=== PATIENT | male | born 1940 | race Caucasian/White ===

== ENCOUNTER 2017-07-17 23:08 | Inpatient (IN) | payer MEDICARE, OTHER ==
[~2017-07-17] VITALS: Ht 180.3 cm; Wt 81.3 kg
[~2017-07-17 23:08] MED LIST: AMLO2.5T PO; CARV3.125 PO; FOLI1TAB4 PO; FURO1TAB60 PO; K-TA10TA PO; LEVA750T PO; MAGN400T PO; MAPA500T PO; NOVO7030P2 SQ; OMEP40CA2 PO; PRESCAP5 PO; SYMB160A INH
[2017-07-17 23:11] VITALS: BP 114/65; PULSE 90; RESP 28; TEMP 96.7; O2SAT 98
[2017-07-18] VITALS (15 sets, daily range): BP systolic 89–131; BP diastolic 53–79; PULSE 60–83; RESP 18–33; TEMP 95.8–98.7; O2SAT 97–100
--- NOTE | 2017-07-18 00:09 | PD ---
HPI Chief Complaint: Respiratory Distress Time Seen by Provider: 23:56 Travel History International Travel<30 days: No Contact w/Intl Traveler<30days: No Traveled to known affect area: No History of Present Illness HPI The patient is a 76 year old male who presents to the [facility] emergency department with a history of with a history of shortness of breath that began 3 weeks ago. It is constant and worse with activity. He went to an ER in [place] when he was traveling regarding the SOB. He was diagnosed with a "spot on his lung." He was told to follow up with his PCP when he returned back home from his vacation. He denies having any chest pain. He has had some swelling in his legs for 3-4 days. He has had a cough with congestion for 2 weeks. The patient reports that the cough 4 days ago with the use of Mucinex was reductive of a white sputum. The patient reports that he does have a history of congestive heart failure. On review of systems, the patient denies having any no recent fevers, neck pain, chest pain, abdominal pain, vomiting, diarrhea, urinary symptoms, or neurologic symptoms. [facility] Past Medical History Narrative Medical The patient's past medical history is significant for prostate cancer, diabetic , hypertension, 3 prior heart attacks-last stress test was 6-7 years ago, CHF, anemia and thrombocytopenia, chronic kidney disease, hyperlipidemia, acid reflux , gout. Resource Analyst: Cannot recall the name. PCP: CAROLINE Martinez Anticoagulant Therapy: Yes (ASPIRIN 81 MG) Asthma: Yes Blood Disorders: No Depression: No Heart Rhythm Problems: Yes (bradycardia) Cancer: Yes (PROSTATE) Cardiac Catheterization: Yes Cardiovascular Problems: Yes (LA X 3) High Cholesterol: Yes Chemotherapy: Yes (04/20) Chest Pain: Yes Congestive Heart Failure: Yes COPD: No Diabetes: Yes Patient Takes Glucophage: No Dialysis: Yes (HX OF - LAST DIALYSIS AUG 12) Diminished Hearing: No Endocrine: Yes Gastrointestinal Disorders: Yes Genitourinary: Yes (previously on dialysis in 2007 ) Hypertension: Yes Immune Disorder: No Implanted Vascular Access Dvce: Yes Musculoskeletal: Yes (hx spinal problems ) Neurologic: Yes (hx pinched nerves, seizures at 12yo) Psychiatric: No Reproductive: No Respiratory: Yes Myocardial Infarction: Yes Renal Failure: Yes Sleep Apnea: No Thyroid Disease: No Tetanus Vaccination: Unknown Influenza Vaccination: No Past Surgical History Narrative Surgical The patient's past surgical history is significant for an AICD placement, AV fistula for hemodialysis in the past, history of cardiac catheterization, history of pacemaker placement. AICD: Yes Appendectomy: No Arteriovenous Shunt: Yes (left upper arm) Body Medical Devices: Pacemaker/AICD, fistula left arm Cardiac Surgery: Yes (STENT) Cholecystectomy: No Coronary Artery Bypass Graft: No Coronary Stent: Yes (X 1) Eye Surgery: Yes (JAX CATARACT REMOVED, LENS IMPLANTS) Joint Replacement: No Neurologic Surgery: No Pacemaker: Yes (MODEL #7288 SERIAL #[id number]) Thoracic Surgery: Yes (PACEMAKER-DEFIBRILLATOR ) Other Surgery: Yes (AV FISTULA LEFT ARM, + BRUIT AND THRILL) Family History Family Myocardial Infarction: Yes (MOTHER) Social History Alcohol Use: No (QUIT) Tobacco Use: No (2 PPD X 50 YEARS, QUIT 1999) Substance Use: No Allergies-Medications (Allergen,Severity, Reaction): Coded Allergies: MRI PRECAUTION (Verified Adverse Reaction, Severe, Secura Defibrillator Medtronic, 06/19/16) MODEL #[id number] UNSAFE LG 06/03/16 Reported Meds & Prescriptions Reported Meds & Active Scripts Active Levaquin (Levofloxacin) 750 Mg Tab 750 Mg PO Q48H 6 Days Novolin 70-30 Inj (Insulin Human Isoph/Insulin Regular) 1,000 Unit/10 Ml Vial 3 Units SQ BID 30 Days Reported Preservision Areds 2 (Multiple Vitamins W/ Minerals) 1 Cap 1 Cap PO DAILY K-Tab (Potassium Chloride) 10 Meq Tab 10 Meq PO DAILY Omeprazole 40 Mg Cap 40 Mg PO DAILY PRN Magnesium Oxide 400 Mg Tab 400 Mg PO DAILY Lasix (Furosemide) 40 Mg Tab 40 Mg PO DAILY IN THE MORNING Folate (Folic Acid) 1 Mg Tab 1 Mg PO DAILY Coreg (Carvedilol) 3.125 Mg Tab 3.125 Mg PO Q12HR Symbicort Inh (Budesonide/Formoterol Fumarate) 160-4.5 Mcg/Act Aero 1 Puff INH Q12HR Amlodipine (Amlodipine Besylate) 2.5 Mg Tab 2.5 Mg PO DAILY Mapap (Acetaminophen) 500 Mg Tab 500 Mg PO Q6HR PRN Review of Systems Except as stated in HPI: all other systems reviewed are Neg General / Constitutional: No: Fever Eyes: No: Visual changes HENT: Positive: Congestion, No: Headaches Cardiovascular: Positive: Dyspnea on exertion, Edema, No: Chest Pain or Discomfort Respiratory: Positive: Cough, Shortness of Breath Gastrointestinal: No: Abdominal Pain Genitourinary: No: Dysuria Musculoskeletal: No: Pain Skin: No Rash Neurologic: No: Weakness Psychiatric: No: Depression Endocrine: No: Polydipsia Hematologic/Lymphatic: No: Easy Bruising Physical Exam Narrative General: The patient is a well-developed well-nourished male in no acute distress. Head and Neck exam: Head is normocephalic atraumatic. Eyes: EOMI, pupils are equal round and reactive to light. Nose: Midline septum with pink mucous membranes Mouth: Dentition unremarkable. Moist mucus membranes. Posterior oropharynx is not erythematous. No tonsillar hypertrophy. Uvula midline. Airway patent. Neck: No palpable lymphadenopathy. No nuchal rigidity. No thyromegaly. Cardiovascular: Regular rate and rhythm without murmurs, gallops, or rubs. Lungs: Crackles audible in bilateral lung bases. No rhonchi, no wheezes. Abdomen: Soft, without tenderness to palpation in all 4 quadrants of the abdomen. No guarding, rebound, or rigidity. Normal bowel sounds are audible. No tenderness on palpation of McBurney's point. Extremities: No clubbing or cyanosis. The patient has 2+ pitting edema bilateral lower extremities. Back: No spinous process tenderness to palpation. No costovertebral angle tenderness to palpation. Neurologic Exam: Grossly nonfocal. Skin Exam: No rash noted. Intact skin that is warm and dry. Data Data Last Documented VS Vital Signs Date Time Temp Pulse Resp B/P (MAP) Pulse Ox O2 Delivery O2 Flow Rate FiO2 07/18/17 00:14 100 Nasal Cannula 2.00 07/18/17 00:14 21 07/17/17 23:11 96.7 90 Orders Orders Complete Blood Count With Diff (07/18/17 00:11) Comprehensive Metabolic Panel (07/18/17 00:11) B-Type Natriuretic Peptide (07/18/17 00:11) D-Dimer (07/18/17 00:11) Act Partial Throm Time (Ptt) (07/18/17 00:11) Prothrombin Time / Inr (Pt) (07/18/17 00:11) Magnesium (Mg) (07/18/17 00:11) Ckmb (Isoenzyme) Profile (07/18/17 00:11) Troponin I (07/18/17 00:11) Urinalysis - C+S If Indicated (07/18/17 00:11) Iv Access Insert/Monitor (07/18/17 00:11) Electrocardiogram (07/18/17 00:11) Ecg Monitoring (07/18/17 00:11) Oximetry (07/18/17 00:11) Oxygen Administration (07/18/17 00:11) Chest, Single Ap (07/18/17 00:11) Sodium Chloride 0.9% Flush (Ns Flush) (07/18/17 00:15) Furosemide Inj (Lasix Inj) (07/18/17 00:15) Aspirin Chew (Aspirin Chew) (07/18/17 00:15) Type And Screen (07/18/17 01:32) Sodium Chlor 0.9% 250 Ml Inj (Ns 250 Ml (07/18/17 01:45) Admit Order (Ed Use Only) (07/18/17 01:43) Labs Laboratory Tests Test 07/18/17 00:15 White Blood Count 5.7 TH/MM3 Red Blood Count 2.36 MIL/MM3 Hemoglobin 7.6 GM/DL Hematocrit 23.5 % Mean Corpuscular Volume 99.5 FL Mean Corpuscular Hemoglobin 32.1 PG Mean Corpuscular Hemoglobin Concent 32.3 % Red Cell Distribution Width 15.4 % Platelet Count 77 TH/MM3 Mean Platelet Volume 9.8 FL Neutrophils (%) (Auto) 67.6 % Lymphocytes (%) (Auto) 21.3 % Monocytes (%) (Auto) 7.8 % Eosinophils (%) (Auto) 2.3 % Basophils (%) (Auto) 1.0 % Neutrophils # (Auto) 3.8 TH/MM3 Lymphocytes # (Auto) 1.2 TH/MM3 Monocytes # (Auto) 0.4 TH/MM3 Eosinophils # (Auto) 0.1 TH/MM3 Basophils # (Auto) 0.1 TH/MM3 CBC Comment AUTO DIFF Differential Comment AUTO DIFF CONFIRMED Prothrombin Time 11.4 SEC Prothromb Time International Ratio 1.0 RATIO Activated Partial Thromboplast Time 27.2 SEC D-Dimer Quantitative (PE/DVT) 0.58 MG/L FEU Blood Urea Nitrogen 74 MG/DL Creatinine 2.59 MG/DL Random Glucose 209 MG/DL Total Protein 6.7 GM/DL Albumin 3.7 GM/DL Calcium Level 8.3 MG/DL Magnesium Level 2.3 MG/DL Alkaline Phosphatase 150 U/L Aspartate Amino Transf (AST/SGOT) 18 U/L Alanine Aminotransferase (ALT/SGPT) 26 U/L Total Bilirubin 0.7 MG/DL Sodium Level 137 MEQ/L Potassium Level 4.0 MEQ/L Chloride Level 106 MEQ/L Carbon Dioxide Level 21.9 MEQ/L Anion Gap 9 MEQ/L Estimat Glomerular Filtration Rate 24 ML/MIN Total Creatine Kinase 59 U/L Troponin I 0.05 NG/ML B-Type Natriuretic Peptide 1045 PG/ML MDM Medical Decision Making Medical Screen Exam Complete: Yes Emergency Medical Condition: Yes Medical Record Reviewed: Yes Interpretation(s) Last Impressions Chest X-Ray 07/18/17 0011 Signed Impressions: Service Date/Time: Tuesday, July 18, 2017 00:28 - CONCLUSION: Perihilar vascular congestion and moderate pleural effusions left greater than right. Bruce Guaman MD Differential Diagnosis Congestive heart failure exacerbation, versus symptomatic anemia, versus pulmonary embolism, versus pneumonia Narrative Course During the course of the patients emergency department visit, the patients history, examination, and differential diagnosis were reviewed with the patient. The patient was placed on a change over with oximetry and frequent blood pressure monitoring. The patient had IV access obtained and blood work sent for analysis. The patient had an ECG done on arrival that shows an electronic ventricular paced rhythm, no other acute abnormality. The patient was initially provided aspirin 324 mg by mouth 1. Lasix 40 mg IV. The patients laboratory studies were reviewed and remarkable for a white count of 5.7, hemoglobin 7.6 which is similar compared to previously at 7.9 on July 14, 2017, CMP is remarkable for BUN of 74, creatinine 2.59 which is similar compared to previously, alkaline phosphatase 150, CPK troponin I within normal limits, BNP is elevated at 1045, PT 11.4, PTT 27.2, d-dimer 0.58 Radiology studies were reviewed and remarkable for a chest x-ray that shows perihilar vascular congestion and moderate pleural effusions left greater than the right. This is consistent with congestive heart failure exacerbation. The patient was typed and screened. The patients results were discussed with the patient, including the plan of care. I explained that further testing and/ or monitoring is indicated based on the patients history, examination, and/ or laboratory findings. Therefore, I recommended admission for additional evaluation. The patient expressed understanding and was agreeable with this plan. The patient was admitted to the hospital in stable condition and sent to a bed under the care of the [facility] service. Physician Communication Physician Communication The patient's case including history, pertinent physical examination findings, and laboratory studies were discussed with Dr. Zambrano. It was agreed that the patient would be admitted to the [facility] service. Diagnosis Primary Impression: Acute exacerbation of congestive heart failure Qualified Codes: I50.9 - Heart failure, unspecified Additional Impression: Anemia Qualified Codes: D64.9 - Anemia, unspecified Admitting Information Admitting Physician Requests: Mady Goetz MD Jul 18, 2017 00:08
[2017-07-18] MEDS ORDERED: FUROSEMIDE 40 MG/4 ML VIAL IVP ONE (00:15)
[2017-07-18] MEDS ORDERED: SODIUM CHLORIDE 0.9% FLUSH 10 ML FLUSH IVF PRN (00:15)
[2017-07-18] MEDS ORDERED: ASPIRIN 81 MG CHEW TAB CHEW ONE (00:15)
[2017-07-18 00:29] LABS: AUTOMATED NEUTROPHIL # 3.8 TH/MM3 (1.8-7.7); BASOPHIL # 0.1 TH/MM3 (0-0.2); EOSINOPHIL # 0.1 TH/MM3 (0-0.4); EOSINOPHIL % 2.3 % (0.0-4.0); HEMATOCRIT 23.5 % (39.0-51.0); LYMPH % 21.3 % (9.0-44.0); LYMPHOCYTE # 1.2 TH/MM3 (1.0-4.8); MEAN CELL VOLUME 99.5 FL (80.0-100.0); MEAN CORPUSCULAR HEMOGLOBIN 32.1 PG (27.0-34.0); MEAN CORPUSCULAR HGB CONC 32.3 % (32.0-36.0); MONO % 7.8 % (0.0-8.0); NEUT % 67.6 % (16.0-70.0); PLATELET COUNT 77 TH/MM3 (150-450); RED BLOOD COUNT 2.36 MIL/MM3 (4.50-5.90); RED CELL DISTRIBUTION WIDTH 15.4 % (11.6-17.2); WHITE BLOOD COUNT 5.7 TH/MM3 (4.0-11.0)
[2017-07-18 00:33] LABS: HEMO FLAGS AUTO DIFF
[2017-07-18 00:42] LABS: APTT (PATIENT) 27.2 SEC (24.3-30.1); PROTHROMBIN TIME - PATIENT 11.4 SEC (9.8-11.6)
[2017-07-18 00:45] LABS: ALT (GPT) 26 U/L (12-78); ANION GAP 9 MEQ/L (5-15); AST (GOT) 18 U/L (15-37); BICARBONATE 21.9 MEQ/L (21.0-32.0); BLOOD UREA NITROGEN 74 MG/DL (7-18); CHLORIDE 106 MEQ/L (98-107); GLOMERULAR FILTRATION RATE 24 ML/MIN (>89); MAGNESIUM 2.3 MG/DL (1.5-2.5); SODIUM (NA) 137 MEQ/L (136-145)
[2017-07-18 00:49] LABS: ALKALINE PHOSPHATASE 150 U/L (45-117); TOTAL BILIRUBIN ADULT 0.7 MG/DL (0.2-1.0)
[2017-07-18 00:53] LABS: CREATINE KINASE 59 U/L (39-308)
--- NOTE | 2017-07-18 00:56 | RADRPT ---
EXAM DATE/TIME: 07/18/2017 00:28 [place] COMPARISON: CHEST SINGLE AP, August 06, 2016, 11:11. INDICATIONS : Short of breath. MEDICAL HISTORY : None. SURGICAL HISTORY : Pacemaker. ENCOUNTER: Initial ACUITY: 1 day PAIN SCORE: 0/10 LOCATION: Bilateral chest FINDINGS: A single view of the chest demonstrates there is new bilateral perihilar vascular congestion with mod erate-sized pleural effusions left greater than right. The heart is enlarged. Left subclavian bipolar pacer . Osseous structures are intact. CONCLUSION: Perihilar vascular congestion and moderate pleural effusions left greater than right. Bruce Guaman MD on July 18, 2017 at 0:53 Board Certified Radiologist. This report was verified electronically.
[2017-07-18 01:19] LABS: SCAN/DIFF AUTO DIFF CONFIRMED
[2017-07-18] MEDS ORDERED: SODIUM CHLOR 0.9% 250 ML INJ 250 ML IV ONE (01:45)
[2017-07-18] MEDS ORDERED: SODIUM CHLORIDE 0.9% FLUSH 10 ML FLUSH IV FLUSH PRN (02:00)
[2017-07-18] MEDS ORDERED: GLUCAGON 1 MG/ML VIAL OTHER PRN (02:15)
[2017-07-18] MEDS ORDERED: PILL SPLITTER OTHER PRN (02:15)
[2017-07-18] MEDS ORDERED: DEXTROSE 50% IN WATER 50 ML VIAL(D50) IV PUSH PRN (02:15)
--- NOTE | 2017-07-18 02:20 | HHI.HP ---
[facility] Admission Diagnosis CHF exacerbation, chronic anemia, renal insufficiency Diagnoses: Travel History International Travel<30 Days: No Contact w/Intl Traveler <30 Da: No Traveled to Known Affected Are: No History of Present Illness 76-year-old male with a past medical history significant for CHF, CKD, CAD, hypertension, hyperlipidemia and current prostate cancer undergoing treatment presents to the emergency department with a 3 week history of increasing dyspnea. Patient reports that over the past 3 weeks he has been short of breath , worse with exertion. He was seen in the emergency department in [place] 1 week ago where he was told that he had a spot on his lung that needed to be followed up and he was released to home. The patient's shortness of breath continued to worsen and he now has a 5 day history of bilateral lower extremity edema. Patient's lab values significant for a BNP of 1045, creatinine of 2.59 with a baseline of approximately 1.5, and an H&H of 7.6/23.5. Hemoglobin on 07/14/17 was 7.9. Review of Systems Denies fever or chills Denies blurry vision, otorrhea, rhinorrhea Denies sore throat and cough No chest pain, palpitations, positive shortness of breath No abdominal pain Denies constipation/diarrhea/nausea/vomiting Denies muscle pain/weakness No rashes Past Family Social History Past Medical History Coronary artery disease Congestive heart failure Diabetes mellitus Hypertension Hyperlipidemia Chronic kidney disease Prostate cancer, urologist Dr. Guerra Past Surgical History AICD placement 5 years ago Reported Medications Reported Meds & Active Scripts Active Levaquin (Levofloxacin) 750 Mg Tab 750 Mg PO Q48H 6 Days Novolin 70-30 Inj (Insulin Human Isoph/Insulin Regular) 1,000 Unit/10 Ml Vial 3 Units SQ BID 30 Days Reported Preservision Areds 2 (Multiple Vitamins W/ Minerals) 1 Cap 1 Cap PO DAILY K-Tab (Potassium Chloride) 10 Meq Tab 10 Meq PO DAILY Omeprazole 40 Mg Cap 40 Mg PO DAILY PRN Magnesium Oxide 400 Mg Tab 400 Mg PO DAILY Lasix (Furosemide) 40 Mg Tab 40 Mg PO DAILY IN THE MORNING Folate (Folic Acid) 1 Mg Tab 1 Mg PO DAILY Coreg (Carvedilol) 3.125 Mg Tab 3.125 Mg PO Q12HR Symbicort Inh (Budesonide/Formoterol Fumarate) 160-4.5 Mcg/Act Aero 1 Puff INH Q12HR Amlodipine (Amlodipine Besylate) 2.5 Mg Tab 2.5 Mg PO DAILY Mapap (Acetaminophen) 500 Mg Tab 500 Mg PO Q6HR PRN Allergies: Coded Allergies: MRI PRECAUTION (Verified Adverse Reaction, Severe, Secura Defibrillator Medtronic, 06/19/16) MODEL #[id number] UNSAFE LG 06/03/16 Family History Mother with diabetes. Social History [id number] history of smoking, quit 17 years ago. Has not had alcohol in over 20 years. Denies illicit drugs. Physical Exam Vital Signs Vital Signs Date Time Temp Pulse Resp B/P (MAP) Pulse Ox O2 Delivery O2 Flow Rate FiO2 07/18/17 00:14 100 Nasal Cannula 2.00 07/18/17 00:14 21 100 Nasal Cannula 2.00 07/17/17 23:11 96.7 90 28 114/65 (81) 98 Physical Exam GENERAL: Elderly male sitting up in bed SKIN: No rashes, ecchymoses or lesions. Cool and dry. HEAD: Atraumatic. Normocephalic. No temporal or scalp tenderness. EYES: Pupils equal round and reactive. Extraocular motions intact. No scleral icterus. No injection or drainage. ENT: Nose without bleeding, purulent drainage or septal hematoma. Throat without erythema, tonsillar hypertrophy or exudate. Uvula midline. Airway patent. NECK: Trachea midline. No JVD or lymphadenopathy. Supple, nontender, no meningeal signs. CARDIOVASCULAR: Regular rate and rhythm without murmurs, gallops, or rubs. RESPIRATORY: Bilateral crackles in the bases. No wheezes or rhonchi. GASTROINTESTINAL: Abdomen soft, non-tender, nondistended. No hepato-splenomegaly , or palpable masses. No guarding. MUSCULOSKELETAL: 2+ pitting edema to the knees bilaterally NEUROLOGICAL: Awake and alert. Cranial nerves II through XII intact. Motor and sensory grossly within normal limits. Normal speech. Laboratory Laboratory Tests Test 07/18/17 00:15 White Blood Count 5.7 Red Blood Count 2.36 Hemoglobin 7.6 Hematocrit 23.5 Mean Corpuscular Volume 99.5 Mean Corpuscular Hemoglobin 32.1 Mean Corpuscular Hemoglobin Concent 32.3 Red Cell Distribution Width 15.4 Platelet Count 77 Mean Platelet Volume 9.8 Neutrophils (%) (Auto) 67.6 Lymphocytes (%) (Auto) 21.3 Monocytes (%) (Auto) 7.8 Eosinophils (%) (Auto) 2.3 Basophils (%) (Auto) 1.0 Neutrophils # (Auto) 3.8 Lymphocytes # (Auto) 1.2 Monocytes # (Auto) 0.4 Eosinophils # (Auto) 0.1 Basophils # (Auto) 0.1 CBC Comment AUTO DIFF Differential Comment AUTO DIFF CONFIRMED Prothrombin Time 11.4 Prothromb Time International Ratio 1.0 Activated Partial Thromboplast Time 27.2 D-Dimer Quantitative (PE/DVT) 0.58 Blood Urea Nitrogen 74 Creatinine 2.59 Random Glucose 209 Total Protein 6.7 Albumin 3.7 Calcium Level 8.3 Magnesium Level 2.3 Alkaline Phosphatase 150 Aspartate Amino Transf (AST/SGOT) 18 Alanine Aminotransferase (ALT/SGPT) 26 Total Bilirubin 0.7 Sodium Level 137 Potassium Level 4.0 Chloride Level 106 Carbon Dioxide Level 21.9 Anion Gap 9 Estimat Glomerular Filtration Rate 24 Total Creatine Kinase 59 Troponin I 0.05 B-Type Natriuretic Peptide 1045 Result Diagram: 07/18/171407/18/17 001 Caprini VTE Risk Assessment Caprini VTE Risk Assessment: Mod/High Risk (score >= 2) Caprini Risk Assessment Model Point Value = 1 Point Value = 2 Point Value = 3 Point Value = 5 Age 41-60 Minor surgery BMI > 25 kg/m2 Swollen legs Varicose veins or History of unexplained or recurrent spontaneous Oral contraceptives or hormone replacement Sepsis (< 1 month) Serious lung disease, including pneumonia (< 1 month) Abnormal pulmonary function Acute myocardial infarction Congestive heart failure (< 1 month) History of inflammatory bowel disease Medical patient at bed rest Age 61-74 Arthroscopic surgery Major open surgery (> 45 min) Laparoscopic surgery (> 45 min) Malignancy Confined to bed (> 72 hours) Immobilizing plaster cast Central venous access Age >= 75 History of VTE Family history of VTE Factor V Leiden Prothrombin [id number] Lupus anticoagulant Anticardiolipin antibodies Elevated serum homocysteine Heparin-induced thrombocytopenia Other congenital or acquired thrombophilia Stroke (< 1 month) Elective arthroplasty Hip, pelvis, or leg fracture Acute spinal cord injury (< 1 month) Prophylaxis Regimen Total Risk Factor Score Risk Level Prophylaxis Regimen 0-1 Low Early ambulation 2 Moderate Order ONE of the following: *Sequential Compression Device (SCD) *Heparin 5000 units SQ BID 3-4 Higher Order ONE of the following medications: *Heparin 5000 units SQ TID *Enoxaparin/Lovenox 40 mg SQ daily (WT < 150 kg, CrCl > 30 mL/min) *Enoxaparin/Lovenox 30 mg SQ daily (WT < 150 kg, CrCl > 10-29 mL/min) *Enoxaparin/Lovenox 30 mg SQ BID (WT < 150 kg, CrCl > 30 mL/min) AND/OR *Sequential Compression Device (SCD) 5 or more Highest Order ONE of the following medications: *Heparin 5000 units SQ TID (Preferred with Epidurals) *Enoxaparin/Lovenox 40 mg SQ daily (WT < 150 kg, CrCl > 30 mL/min) *Enoxaparin/Lovenox 30 mg SQ daily (WT < 150 kg, CrCl > 10-29 mL/min) *Enoxaparin/Lovenox 30 mg SQ BID (WT < 150 kg, CrCl > 30 mL/min) AND *Sequential Compression Device (SCD) Assessment and Plan Assessment and Plan 76-year-old male with multiple medical comorbidities presents to the emergency department with a 3 week history of increasing dyspnea and bilateral lower extremity edema. 1. CHF exacerbation BNP 1045 Chest x-ray with vascular congestion and bilateral pleural effusions, images reviewed by ia IV Lasix twice a day Fluid restrict to 1500 mL Consult cardiology, patient known to Dr. Sommer 2. Acute on chronic kidney disease Creatinine 2.59, baseline from 1 year ago approximately 1.5 Nephrology consulted, appreciate recommendations 3. Anemia H&H 7.6/23.5, 4 days ago was 7.9/24.1 No acute blood loss, continue to follow Transfuse when necessary 4. Diabetes mellitus Patient reports he is no longer on insulin therapy SSI Monitor blood sugars 5. Hypertension Continue home medications Clonidine when necessary 6. COPD Continue Symbicort Duo nebs when necessary FEN Heart healthy diet Electrolytes: monitor and replete prn Heparin Tahira Zambrano MD Jul 18, 2017 02:20
[2017-07-18] MEDS ORDERED: RESP: ALBUTEROL 2.5 MG/IPRATROPIUM 0.5 MG NEB (PRN) NEB (02:30)
[2017-07-18] MEDS ORDERED: cloNIDine HCL 0.1 MG TAB PO PRN (02:30)
[2017-07-18] MEDS: HEPARIN SODIUM - SQ 10,000 UNITS/ML VIAL SQ SCH ×2 (03:35→13:28)
[2017-07-18] MEDS: INSULIN ASPART SUPPLEMENTAL SCALE SQ SCH ×4 (08:00→21:00)
[2017-07-18] MEDS: MAGNESIUM OXIDE 400 MG TAB PO SCH (08:59)
[2017-07-18] MEDS: SODIUM CHLORIDE 0.9% FLUSH 10 ML FLUSH IV FLUSH SCH ×2 (08:59→21:28)
[2017-07-18] MEDS: amLODIPine BESYLATE 5 MG TAB PO SCH (08:59)
[2017-07-18] MEDS: POTASSIUM CHLORIDE 10 MEQ CONTROLLED RELEASE TAB PO SCH (08:59)
[2017-07-18] MEDS: CARVEDILOL 3.125 MG TAB PO SCH ×2 (08:59→21:27)
[2017-07-18] MEDS ORDERED: PANTOPRAZOLE SOD 40 MG DELAYED RELEASE TAB PO PRN (09:00)
[2017-07-18] MEDS: FUROSEMIDE 40 MG/4 ML VIAL IVP SCH ×2 (09:00→17:56)
[2017-07-18] MEDS: BUDESONIDE-FORMOTEROL 160/4.5 MCG INHALER INH SCH ×2 (09:21→21:28)
--- NOTE | 2017-07-18 15:25 | MB ---
cc: YOSHI BLACK DATE OF CONSULTATION: 07/18/2017 HISTORY OF PRESENT ILLNESS Mr. Douglass is a 76-year-old white male with a history of chronic systolic congestive heart failure, ischemic cardiomyopathy with moderate left ventricular dysfunction, coronary artery disease, Medtronic implantable defibrillator and chronic renal insufficiency. He has had progressive dyspnea over the last three weeks. He also has had increased leg edema. He was seen in the emergency room in [place] one week ago. He has had progressive shortness of breath and also lower extremity edema. PAST MEDICAL HISTORY 1. Coronary artery disease, myocardial infarction. Last PET scan in 2014 was negative for ischemia. 2. Chronic systolic congestive heart failure. 3. Ischemic cardiomyopathy with moderate left ventricular dysfunction, ejection fraction 35% by echocardiogram with anteroseptal hypokinesis. 4. Placement of a Medtronic dual-chamber defibrillator. 5. Hypertension. 6. Diabetes mellitus. 7. Chronic renal insufficiency. 8. Placement of AV fistula in the left upper extremity. 9. Cataract surgery. 10.Angioplasty of the left upper extremity. MEDICATIONS 1. Tylenol. 2. Amlodipine. 3. Symbicort. 4. Coreg. 5. Folate. 6. Lasix. 7. Magnesium. 8. Omeprazole. 9. K-Tab. 10.PreserVision. ALLERGIES None. SOCIAL HISTORY The patient does not smoke but used to smoke in the past. He does not drink alcohol. FAMILY HISTORY Positive for coronary disease and myocardial infarction in both parents. REVIEW OF SYSTEMS Otherwise negative. PHYSICAL EXAMINATION VITAL SIGNS: Blood pressure 110/59, pulse 72 and regular. GENERAL: The patient is in mild respiratory distress. HEENT: Negative. NECK: 2+ carotid upstrokes. No bruits. LUNGS: Lungs with bibasilar crackles. HEART: Regular with no murmur or gallop. ABDOMEN: Soft. No bruits. EXTREMITIES: 2+ pitting edema. 1+ distal pulses. NEUROLOGIC: Grossly nonfocal. EKG EKG was reviewed and showed sinus rhythm and ventricular pacing. LABORATORY Hemoglobin 7.6. Potassium 4.0. Creatinine 2.59. AST normal, ALT normal. Troponin 0.05. BNP 1045. DIAGNOSIS 1. Acute exacerbation of chronic systolic congestive heart failure. 2. Acute exacerbation of chronic renal insufficiency. 3. Ischemic cardiomyopathy with moderate left ventricular systolic dysfunction. 4. Coronary artery disease, history of myocardial infarction and coronary stenting. 5. History of Medtronic dual-chamber defibrillator placement. 6. Anemia. 7. Diabetes mellitus. 8. Hypertension. 9. COPD. DISPOSITION Mr. Douglass will be monitored on telemetry. He has not had any angina. He will be treated for congestive heart failure with IV diuresis. I also recommend to continue beta lay. I recommend continuing aggressive modification of his cardiac risk factors. We will closely monitor his renal function and electrolytes. I will follow him for cardiology during his hospitalization. I recommend to proceed with nephrology evaluation as well. I will see him back for followup in our office after discharge. MD MARILU Knox/AME /2:50 PM /3:11 PM MTDD
--- NOTE | 2017-07-18 22:47 | RADRPT ---
EXAM DATE/TIME: 07/18/2017 21:15 [facility] COMPARISON: CT ABDOMEN & PELVIS W/O CONTRAST, August 06, 2016, 12:34. US KIDNEY/RENAL/BLADDER, February 23, 2016, 17:04. INDICATIONS : Increased BUN/Creatinine. MEDICAL HISTORY : Myocardial infarction. Hypercholesterolemia. Hypertension. Syncope. CHF. ESRD. Diabetes. Prostate cancer. SURGICAL HISTORY : Pacemaker. Coronary artery stent. Cataract surgery. AV Shunt. Dialysis. ENCOUNTER: Subsequent ACUITY: 1 month PAIN SCORE: 2/10 LOCATION: Bilateral flank MEASUREMENTS: RIGHT KIDNEY: 9.9 x 4.7 x 5.1 cm LEFT KIDNEY: 10.2 x 4.2 x 4.7 cm FINDINGS: Both kidneys appear to have echogenic cortex. No hydronephrosis is seen on either side . On the right side there are two cysts, the larger one seen at the mid kidney measuring 0.9 cm and a smaller cyst measuring 0.6 cm at the lower pole. There is also a small 3 mm echogenic focus seen at the lower pole which may represent a nonobstructing stone. On the left side there is a 1.9 cm cyst at the mid kidney. There is a 0.5 cm echogenic area seen at the mid left kidney potentially represent ing a prominent area of cortical fat or calcification. No shadowing is seen. The bladder is unremar kable. CONCLUSION: 1. Echogenic kidneys seen bilaterally concerning for medical renal disease. 2. No hydronephrosis is seen. 3. Bilateral renal cysts are seen. 4. Small echogenic foci are seen at the kidneys bilaterally. These could represent small nonobstruct ing stones versus focal areas of fat extending into the renal cortex. They are nonspecific. Again n o hydronephrosis is seen. Juan Jones MD on July 18, 2017 at 22:34 Board Certified Radiologist. This report was verified electronically.
[2017-07-19] VITALS (8 sets, daily range): BP systolic 98–136; BP diastolic 55–60; PULSE 65–78; RESP 18–22; TEMP 97.4–99.7; O2SAT 94–100
[2017-07-19] MEDS: HEPARIN SODIUM - SQ 10,000 UNITS/ML VIAL SQ SCH ×2 (03:07→13:41)
--- NOTE | 2017-07-19 05:39 | MB ---
cc: GUNJAN JEFFERS MD DATE OF CONSULTATION 07/18/2017 REASON FOR CONSULTATION Elevated BUN and creatinine with chronic kidney disease for evaluation. HISTORY OF PRESENT ILLNESS This is a 76-year-old male with a past medical history of hypertension, ischemic heart disease, congestive heart failure, hyperlipidemia, chronic kidney disease, history of prostate cancer. He came to the hospital with the complaint of worsening shortness of breath and increased swelling of the legs. I was called to see the patient because of elevated BUN and creatinine. The patient has a known history of chronic kidney disease and his creatinine in August of last year was 1.4-1.5. The patient has been following at the [facility]. I have seen him when he was here about a year ago and he has been following with the [facility]. Recently he noticed that he has gradual worsening of shortness of breath associated with cough and whitish sputum. He does not have any chest pain. The patient was taking his diuretics at home. He denies any nausea or vomiting. There is no chest pain. There is no history of diarrhea. Occasionally he has dysuria. There is no history of difficulty in passing urine. He denies taking any nonsteroidal anti-inflammatory drugs. The patient was seen by Cardiology had an echocardiogram done which shows that he has a 35% ejection fraction with anteroseptal hypokinesis. PAST MEDICAL HISTORY 1. Hypertension. 2. Ischemic heart disease. 3. Congestive heart failure. 4. Chronic kidney disease. 5. Hyperlipidemia. 6. History of prostate cancer. PAST SURGICAL HISTORY History of AICD placement 5 years ago. REVIEW OF SYSTEMS Patient has generalized weakness, feeling tired. He has nausea, decreased appetite, has worsening shortness of breath with cough and whitish sputum. There is no chest pain. No palpitation. No history of diarrhea. Denies taking any nonsteroidal anti-inflammatory drugs. SOCIAL HISTORY The patient has history of smoking. He stopped 17 years ago. There is no history of heavy alcoholism. FAMILY HISTORY Noncontributory. ALLERGIES He has no known drug allergies. MEDICATIONS Currently he is on following medications 1. Furosemide 40 mg IV b.i.d. 2. Norvasc 2.5 mg once a day. 3. Magnesium oxide 400 mg daily. 4. Potassium chloride 10 mEq once a day. 5. Heparin 5000 units subcu q. 12-hour. 6. Coreg 3.125 mg q.12 hours. 7. NovoLog sliding scale. 8. Symbicort inhaler. 9. Protonix 40 mg as needed. 10. Clonidine as needed. 11. DuoNeb as needed. PHYSICAL EXAMINATION GENERAL: The patient is awake, alert. He is not in acute distress. VITAL SIGNS: His last blood pressure was 102/58. The lowest recorded as 89/53. Temperature is 97.2, oxygen saturation 100% on 2 liters cannula. HEENT: Pupils are mid-constricted. Nonicteric sclerae, conjunctivae pale. NECK: Supple. JVD is slightly elevated. LUNGS: The patient has bilateral decreased air entry with basilar rales and scattered wheezing. HEART: S1, S2. Regular rhythm. ABDOMEN: Distended, soft, lax. There is no tenderness. Bowel sounds positive. EXTREMITIES: He has bilateral 2+ edema. INVESTIGATIONS WBC count is 5.7, hemoglobin is 7.6, platelet count of 77, neutrophils 67.6. Sodium 137, potassium 4.0, chloride 106, bicarb 21.9, BUN 74, creatinine 2.59. Calcium is 8.3, BNP is 1045, total protein is 6.7, albumin of 3.7. PSA was 13.6 four days ago. INR 1.0. Urinalysis showing protein of 30. This was done last year. IMAGING STUDIES The patient has chest x-ray done which shows that he has perihilar vascular congestion with pleural effusion, left greater than the right. ASSESSMENT AND PLAN 1. Chronic kidney disease with possibly some acute worsening. 2. Congestive heart failure. 3. Fluid overload status. 4. Hypertension. 5. Anemia. The patient has low ejection fraction and he is getting diuretics. His underlying creatinine was 1.5 but this was about a year ago and now he is coming in with a creatinine of 2.4. Possibly there is some progression of renal disease and the GFR is now 24.6 mL per minute. He does not have significant proteinuria; most likely he has hypertensive or renovascular disease and I agree with continuing the diuretic at present. His calcium is a little on the low side; I will check the phosphorus and I will also get iron studies as his hemoglobin is low. He may benefit by giving Epogen or blood transfusion for the time being. Avoid any nephrotoxins. Thank you for the consultation and I will follow the patient while he is in the hospital. Gunjan Jeffers MD AQJ/SSB /7:50 PM /5:27 AM
[2017-07-19] MEDS: FUROSEMIDE 40 MG/4 ML VIAL IVP SCH ×2 (08:45→18:30)
[2017-07-19] MEDS: BUDESONIDE-FORMOTEROL 160/4.5 MCG INHALER INH SCH ×2 (08:46→21:30)
[2017-07-19] MEDS: INSULIN ASPART SUPPLEMENTAL SCALE SQ SCH ×4 (08:47→23:23)
[2017-07-19] MEDS: amLODIPine BESYLATE 5 MG TAB PO SCH (08:49)
[2017-07-19] MEDS: MAGNESIUM OXIDE 400 MG TAB PO SCH (08:50)
[2017-07-19] MEDS: POTASSIUM CHLORIDE 10 MEQ CONTROLLED RELEASE TAB PO SCH (08:50)
[2017-07-19] MEDS: CARVEDILOL 3.125 MG TAB PO SCH ×2 (08:50→21:30)
[2017-07-19] MEDS: SODIUM CHLORIDE 0.9% FLUSH 10 ML FLUSH IV FLUSH SCH ×2 (08:50→21:00)
--- NOTE | 2017-07-19 14:31 | HHI.PR ---
Subjective Remarks Patient has been able to wean from 4 L down to 2 L of oxygen. Exertional tolerance improving. He has not yet to baseline. At baseline he uses no oxygen at home. Objective Vital Signs Date Time Temp Pulse Resp B/P (MAP) Pulse Ox O2 Delivery O2 Flow Rate FiO2 07/19/17 12:15 99.7 65 18 103/57 (72) 100 07/19/17 12:00 97.5 66 22 136/60 (85) 94 07/19/17 07:27 97.6 76 18 113/59 (77) 97 07/19/17 06:32 21 07/19/17 04:03 98.9 70 18 98/55 (69) 95 07/18/17 23:41 98.7 75 18 118/68 (85) 99 07/18/17 23:00 66 07/18/17 19:48 98.4 77 18 98/53 (68) 100 07/18/17 15:45 97.2 78 33 102/58 (73) 100 07/18/17 15:40 100 07/18/17 15:00 75 I/O 07/18/17 07/18/17 07/18/17 07/19/17 07/19/17 07/19/17 07:00 15:00 23:00 07:00 15:00 23:00 Intake Total 550 ml 250 ml 60 ml Output Total 1325 ml 100 ml 100 ml Balance -775 ml 150 ml -40 ml Intake Oral 500 ml 250 ml 60 ml IV Total 50 ml Output Urine Total 1325 ml 100 ml 100 ml # Voids 1 Result Diagram: 07/18/17 0015 07/18/17 0015 Objective Remarks GENERAL: NAD, A&Ox3 HEAD: Normocephalic. NECK: Supple, trachea midline. No lymphadenopathy. EYES: No scleral icterus. No injection or drainage. CARDIOVASCULAR: Regular rate and rhythm without murmurs, gallops, or rubs. RESPIRATORY: Breath sounds equal bilaterally. No accessory muscle use. Decreased breath sounds at base of lung on the patient's right side and pulmonary crackles at left base. GASTROINTESTINAL: Abdomen soft, non-tender, nondistended. MUSCULOSKELETAL: No cyanosis, or edema. SKIN: Warm and dry. NEURO: No focal neurological deficitis. A/P Problem List: (1) Acute exacerbation of congestive heart failure ICD Code: I50.9 - Heart failure, unspecified Status: Acute (2) Anemia ICD Code: D64.9 - Anemia, unspecified Status: Chronic (3) Chronic kidney disease (CKD) ICD Code: N18.9 - Chronic kidney disease, unspecified Status: Acute (4) DM (diabetes mellitus) ICD Code: E11.9 - Type 2 diabetes mellitus without complications Status: Acute Assessment and Plan Assessment and Plan 76-year-old male admitted secondary to CHF exacerbation with bilateral extremity edema and worsening dyspnea CHF exacerbation Continue twice a day Lasix Continue fluid restriction Cardiology following Bilateral pleural effusions Left side greater than right Likely contributory to patient's shortness of breath Unlikely to improve rapidly with acute diuresis IR consult for thoracentesis of left side pleural effusion Acute on chronic kidney disease Nephrology following Continue to monitor renal function Anemia May be chronic Continue to follow CBC Transfuse if needed Diabetes mellitus type 2 Follow blood sugars Insulin sliding scale Diabetic diet Hypertension Continue home medications Clonidine when necessary COPD No exacerbation As needed duo nebs Continue Symbicort DVT prophylaxis Heparin Problem Qualifiers (1) Acute exacerbation of congestive heart failure: Qualified Codes: I50.9 - Heart failure, unspecified (2) Anemia: Qualified Codes: D64.9 - Anemia, unspecified Franky Culver MD Jul 19, 2017 14:31
--- NOTE | 2017-07-19 14:35 | EKG ---
Date Performed: 07/17/2017 Time Performed: 23:58:15 PTAGE: 76 years EKG: ELECTRONIC VENTRICULAR PACEMAKER ABNORMAL RHYTHM ECG PREVIOUS TRACING : 07/05/2017 10.44 COMPARED TO PRIOR TRACING VENTRICULAR PACEMAKER RHYTHM IS NEW DOCTOR: Fito Dow Interpretating Date/Time 07/19/2017 14:28:25
[2017-07-19 14:57] LABS: AUTOMATED NEUTROPHIL # 3.2 TH/MM3 (1.8-7.7); BASOPHIL % 0.7 % (0.0-2.0); EOSINOPHIL # 0.1 TH/MM3 (0-0.4); EOSINOPHIL % 1.3 % (0.0-4.0); HEMATOCRIT 24.1 % (39.0-51.0); LYMPH % 20.5 % (9.0-44.0); LYMPHOCYTE # 0.9 TH/MM3 (1.0-4.8); MEAN CELL VOLUME 99.7 FL (80.0-100.0); MEAN CORPUSCULAR HEMOGLOBIN 31.5 PG (27.0-34.0); MEAN CORPUSCULAR HGB CONC 31.6 % (32.0-36.0); MONO % 6.3 % (0.0-8.0); NEUT % 71.2 % (16.0-70.0); PLATELET COUNT 74 TH/MM3 (150-450); RED BLOOD COUNT 2.41 MIL/MM3 (4.50-5.90); RED CELL DISTRIBUTION WIDTH 15.7 % (11.6-17.2); WHITE BLOOD COUNT 4.4 TH/MM3 (4.0-11.0)
[2017-07-19 15:02] LABS: HEMO FLAGS AUTO DIFF
[2017-07-19 15:15] LABS: ALT (GPT) 28 U/L (12-78); ANION GAP 8 MEQ/L (5-15); AST (GOT) 18 U/L (15-37); BICARBONATE 22.4 MEQ/L (21.0-32.0); BLOOD UREA NITROGEN 78 MG/DL (7-18); CHLORIDE 108 MEQ/L (98-107); GLOMERULAR FILTRATION RATE 25 ML/MIN (>89); POTASSIUM 4.3 MEQ/L (3.5-5.1); SODIUM (NA) 138 MEQ/L (136-145)
[2017-07-19 15:18] LABS: ALKALINE PHOSPHATASE 149 U/L (45-117); FERRITIN 157 NG/ML (26-388); TOTAL BILIRUBIN ADULT 0.6 MG/DL (0.2-1.0); TRANSFERRIN IRON PROFILE 255 MG/DL (200-360)
[2017-07-19 15:59] LABS: PLATELET ESTIMATE SMEAR LOW (NORMAL); PLATELET MORPHOLOGY NORMAL (NORMAL); SCAN/DIFF AUTO DIFF CONFIRMED
--- NOTE | 2017-07-19 16:19 | PD.CARD.PN ---
Subjective Subjective Remarks Still c/o dyspnea, no CP, LE edema present Objective Medications Current Medications Medications (Trade) Dose Ordered Sig/Bita Route Start Time Stop Time Status Last Admin (Norvasc) 2.5 mg DAILY PO 07/18/17 09:00 07/19/17 08:49 (Symbicort 160-4.5 Inh) 1 puff Q12HR INH 07/18/17 09:00 07/19/17 08:46 (Coreg) 3.125 mg Q12HR PO 07/18/17 09:00 07/19/17 08:50 (Mag-Ox) 400 mg DAILY PO 07/18/17 09:00 07/19/17 08:50 (KCl) 10 meq DAILY PO 07/18/17 09:00 07/19/17 08:50 (Protonix) 40 mg DAILY PRN PO 07/18/17 09:00 (NS Flush) 2 ml UNSCH PRN IV FLUSH 07/18/17 02:00 (NS Flush) 2 ml BID IV FLUSH 07/18/17 09:00 07/19/17 08:50 (Lasix Inj) 40 mg BID@,18 IVP 07/18/17 09:00 07/19/17 08:45 (Heparin Inj) 5,000 units Q12H SQ 07/18/17 02:00 07/19/17 13:41 (Pill Splitter) 1 ea UNSCH PRN OTHER 07/18/17 02:15 (D50w (Vial) Inj) 50 ml UNSCH PRN IV PUSH 07/18/17 02:15 (Glucagon Inj) 1 mg UNSCH PRN OTHER 07/18/17 02:15 (NovoLOG SUPPLEMENTAL SCALE) 1 ACHS SLIDING SCALE SQ 07/18/17 08:00 07/19/17 13:41 (Catapres) 0.1 mg Q6H PRN PO 07/18/17 02:30 (Duoneb Neb) 1 ampule Q4HR NEB PRN NEB 07/18/17 02:30 Vital Signs / I&O Vital Signs Date Time Temp Pulse Resp B/P (MAP) Pulse Ox O2 Delivery O2 Flow Rate FiO2 07/19/17 12:15 99.7 65 18 103/57 (72) 100 07/19/17 12:00 97.5 66 22 136/60 (85) 94 07/19/17 07:27 97.6 76 18 113/59 (77) 97 07/19/17 06:32 21 07/19/17 04:03 98.9 70 18 98/55 (69) 95 07/18/17 23:41 98.7 75 18 118/68 (85) 99 07/18/17 23:00 66 07/18/17 19:48 98.4 77 18 98/53 (68) 100 I/O 07/18/17 07/18/17 07/18/17 07/19/17 07/19/17 07/19/17 07:00 15:00 23:00 07:00 15:00 23:00 Intake Total 550 ml 250 ml 60 ml Output Total 1325 ml 100 ml 100 ml Balance -775 ml 150 ml -40 ml Intake Oral 500 ml 250 ml 60 ml IV Total 50 ml Output Urine Total 1325 ml 100 ml 100 ml # Voids 1 Physical Exam GENERAL: In mild resp distress SKIN: Warm and dry. HEAD: Normocephalic. EYES: No scleral icterus. No injection or drainage. NECK: Supple, trachea midline. No JVD or lymphadenopathy. CARDIOVASCULAR: Regular rate and rhythm without murmurs, gallops, or rubs. RESPIRATORY: Breath sounds equal bilaterally. No accessory muscle use. Few bibas crackles. GASTROINTESTINAL: Abdomen soft, non-tender, nondistended. MUSCULOSKELETAL: No cyanosis, 2+ edema. Laboratory Laboratory Tests Test 07/19/17 14:22 White Blood Count 4.4 TH/MM3 Red Blood Count 2.41 MIL/MM3 Hemoglobin 7.6 GM/DL Hematocrit 24.1 % Mean Corpuscular Volume 99.7 FL Mean Corpuscular Hemoglobin 31.5 PG Mean Corpuscular Hemoglobin Concent 31.6 % Red Cell Distribution Width 15.7 % Platelet Count 74 TH/MM3 Mean Platelet Volume 9.6 FL Neutrophils (%) (Auto) 71.2 % Lymphocytes (%) (Auto) 20.5 % Monocytes (%) (Auto) 6.3 % Eosinophils (%) (Auto) 1.3 % Basophils (%) (Auto) 0.7 % Neutrophils # (Auto) 3.2 TH/MM3 Lymphocytes # (Auto) 0.9 TH/MM3 Monocytes # (Auto) 0.3 TH/MM3 Eosinophils # (Auto) 0.1 TH/MM3 Basophils # (Auto) 0.0 TH/MM3 CBC Comment AUTO DIFF Differential Comment AUTO DIFF CONFIRMED Platelet Estimate LOW Platelet Morphology Comment NORMAL Blood Urea Nitrogen 78 MG/DL Creatinine 2.56 MG/DL Random Glucose 289 MG/DL Total Protein 6.4 GM/DL Albumin 3.5 GM/DL Calcium Level 8.1 MG/DL Phosphorus Level 4.6 MG/DL Alkaline Phosphatase 149 U/L Aspartate Amino Transf (AST/SGOT) 18 U/L Alanine Aminotransferase (ALT/SGPT) 28 U/L Total Bilirubin 0.6 MG/DL Sodium Level 138 MEQ/L Potassium Level 4.3 MEQ/L Chloride Level 108 MEQ/L Carbon Dioxide Level 22.4 MEQ/L Anion Gap 8 MEQ/L Estimat Glomerular Filtration Rate 25 ML/MIN Iron Level 58 MCG/DL Total Iron Binding Capacity 357 MCG/DL Percent Iron Saturation 16.2 % Ferritin 157 NG/ML B-Type Natriuretic Peptide 1420 PG/ML Assessment and Plan Problem List: (1) Acute exacerbation of congestive heart failure ICD Codes: I50.9 - Heart failure, unspecified Status: Acute (2) Ischemic cardiomyopathy ICD Codes: I25.5 - Ischemic cardiomyopathy (3) CAD (coronary artery disease) ICD Codes: I25.10 - Atherosclerotic heart disease of [place] coronary artery without angina pectoris (4) ARF (acute renal failure) ICD Codes: N17.9 - Acute kidney failure, unspecified Status: Acute (5) ICD (implantable cardioverter-defibrillator) in place ICD Codes: Z95.810 - Presence of automatic (implantable) cardiac defibrillator (6) Chronic kidney disease (CKD) ICD Codes: N18.9 - Chronic kidney disease, unspecified Status: Acute (7) DM (diabetes mellitus) ICD Codes: E11.9 - Type 2 diabetes mellitus without complications Status: Acute (8) Anemia ICD Codes: D64.9 - Anemia, unspecified Status: Chronic (9) HTN (hypertension) ICD Codes: I10 - Essential (primary) hypertension Status: Chronic Assessment and Plan Still dyspneic and edematous. Not diuresing well. Nephrology evaluation in progress. No evidence of ACS. Continue diuresis, closely monitoring renal fx. Increase activity. Continue tx for CHF. Problem Qualifiers (1) Acute exacerbation of congestive heart failure: Qualified Codes: I50.9 - Heart failure, unspecified (2) Anemia: Qualified Codes: D64.9 - Anemia, unspecified Bg Sommer MD Jul 19, 2017 16:19
--- NOTE | 2017-07-19 18:55 | HHI.NPPN ---
Subjective History of Present Illness 76-year-old male with a past medical history of hypertension, ischemic heart disease, congestive heart failure, hyperlipidemia, chronic kidney disease, history of prostate cancer. He came to the hospital with the complaint of worsening shortness of breath and increased swelling of the legs. I was called to see the patient because of elevated BUN and creatinine. The patient has a known history of chronic kidney disease and his creatinine in August of last year was 1.4-1.5. The patient has been following at the [place]. Additional Remarks Patient is sitting on chair, with nasal cannula, breathing is slightly better. Objective Data Data 07/19/17 07/20/17 19:00 07:00 # Voids 3 Vital Signs Date Time Temp Pulse Resp B/P (MAP) Pulse Ox O2 Delivery O2 Flow Rate FiO2 07/19/17 15:28 97.4 78 20 103/56 (72) 99 07/19/17 12:15 99.7 65 18 103/57 (72) 100 07/19/17 12:00 97.5 66 22 136/60 (85) 94 07/19/17 07:27 97.6 76 18 113/59 (77) 97 07/19/17 06:32 21 07/19/17 04:03 98.9 70 18 98/55 (69) 95 07/18/17 23:41 98.7 75 18 118/68 (85) 99 07/18/17 23:00 66 07/18/17 19:48 98.4 77 18 98/53 (68) 100 -: 07/19/17 1422 07/19/17 1422 Physical Exam General Appearance: No Acute Distress, Comfortable Throat Throat Exam: Oral Mucosa Mott & Moist Pulmonary Resp Exam: Breath Sounds Equal, No Distress, Crackles, Decreased Bases, Diminished Breath Sounds Gastrointestinal/Abdomen GI Exam: Soft, Non-Tender, Bowel Sounds Present Extremeties Extremities Exam: Moderate Edema, Pitting Edema, Dependent Edema Neurologic Neuro Exam: Alert, Awake, Oriented Psychiatric Psych Exam: Appropriate Responses Assessment/Plan Assessment Summary: Anemia of CKD, Fluid/Volume Overload, CHF, CKD Stage IV Problem List: (1) Diabetes mellitus, insulin dependent (IDDM), uncontrolled ICD Codes: E10.65 - Type 1 diabetes mellitus with hyperglycemia Status: Chronic (2) Hyperlipidemia ICD Codes: E78.5 - Hyperlipidemia, unspecified Status: Chronic (3) Hypoxemia ICD Codes: R09.02 - Hypoxemia Status: Acute (4) SOB (shortness of breath) ICD Codes: R06.02 - Shortness of breath Status: Acute (5) HTN (hypertension) ICD Codes: I10 - Essential (primary) hypertension Status: Chronic (6) CHF (congestive heart failure) ICD Codes: I50.9 - Heart failure, unspecified Status: Chronic (7) Chronic kidney disease (CKD) ICD Codes: N18.9 - Chronic kidney disease, unspecified Status: Acute Plan Patient has chronic kidney disease, possibly stage 4. Check UA for proteinuria. Continue Lasix and Kcl. Creatinine is almost same. Hgb. is low, iron sat. is low. Add iron and give one dose of Epogen. Radha Stanley MD Jul 19, 2017 18:55
[2017-07-19] MEDS ORDERED: EPOETIN ALFA 20,000 UNITS/ML VIAL SQ ONE (21:00)
[2017-07-19] MEDS: FERROUS SULFATE 325 MG (65 MG ELEMENTAL IRON) TAB PO SCH (21:30)
[2017-07-20] VITALS (11 sets, daily range): BP systolic 85–105; BP diastolic 47–58; PULSE 61–87; RESP 18–21; TEMP 96.7–98; O2SAT 93–99
[2017-07-20] MEDS: HEPARIN SODIUM - SQ 10,000 UNITS/ML VIAL SQ SCH ×2 (02:16→15:20)
[2017-07-20 02:37] LABS: BLOOD, URINE NEG (NEG); COMMENT (UR) CULT NOT INDICATED; CULTURE IF INDICATED CULT NOT INDICATED; GLUCOSE,URINE NEG (NEG); HYALINE CAST, URINE 9 /lpf (RARE); KETONE, URINE NEG (NEG); MUCUS URINE FEW /lpf (OCC); NITRITE,URINE NEG (NEG); URINE COLOR YELLOW (YELLW/STRAW)
[2017-07-20] MEDS: INSULIN ASPART SUPPLEMENTAL SCALE SQ SCH ×4 (08:00→21:12)
[2017-07-20] MEDS: BUDESONIDE-FORMOTEROL 160/4.5 MCG INHALER INH SCH ×2 (10:21→20:29)
[2017-07-20] MEDS: amLODIPine BESYLATE 5 MG TAB PO SCH (10:21)
[2017-07-20] MEDS: SODIUM CHLORIDE 0.9% FLUSH 10 ML FLUSH IV FLUSH SCH ×2 (10:21→20:31)
[2017-07-20] MEDS: FERROUS SULFATE 325 MG (65 MG ELEMENTAL IRON) TAB PO SCH ×2 (10:21→20:29)
[2017-07-20] MEDS: POTASSIUM CHLORIDE 10 MEQ CONTROLLED RELEASE TAB PO SCH (10:22)
[2017-07-20] MEDS: MAGNESIUM OXIDE 400 MG TAB PO SCH (10:22)
[2017-07-20] MEDS: FUROSEMIDE 40 MG TAB PO SCH (10:22)
[2017-07-20] MEDS: CARVEDILOL 3.125 MG TAB PO SCH ×2 (10:22→20:29)
--- NOTE | 2017-07-20 12:27 | RADRPT ---
EXAM DATE/TIME: 07/20/2017 12:13 [facility] COMPARISON: CHEST SINGLE AP, July 18, 2017, 0:28. INDICATIONS : Post thoracentesis. MEDICAL HISTORY : Myocardial infarction. Hypertension. Seizures. Syncope. Congestive heart failure. Anticoagulant thera py. Renal failure. Diabetes. Prostate cancer. Chemotherapy. SURGICAL HISTORY : Pacemaker. Cataract removal. Left arm fistula. Cardiac catheterization. Coronary stent ENCOUNTER: Subsequent ACUITY: 3 days PAIN SCORE: 0/10 LOCATION: Bilateral chest FINDINGS: There is bilateral consolidation greatest at the lung bases. No evidence of pneumothorax. ICD device again noted. Cardiomegaly. Small bilateral effusions are noted decreased from previous. CONCLUSION: No evidence of pneumothorax. Small effusions and infiltrates bilaterally. Lowell Bull MD on July 20, 2017 at 12:25 Board Certified Radiologist. This report was verified electronically.
[2017-07-20 13:25] LABS: TOTAL PROTEIN,PLEURAL FLUID 2.2 GM/DL
--- NOTE | 2017-07-20 13:43 | HHI.PR ---
Subjective Remarks No new complaints from the patient. She remains oxygen dependent. He is not oxygen dependent at baseline. Thoracentesis pending. Objective Vital Signs Date Time Temp Pulse Resp B/P (MAP) Pulse Ox O2 Delivery O2 Flow Rate FiO2 07/20/17 12:30 65 20 90/47 (61) 95 07/20/17 12:15 97.5 63 20 94/54 (67) 96 07/20/17 11:47 98.0 72 20 88/56 (67) 97 07/20/17 08:04 97.4 76 18 105/58 (74) 97 07/20/17 06:35 Nasal Cannula 2.00 07/20/17 04:26 96.8 69 18 93/51 (65) 97 07/20/17 00:04 96.7 64 18 85/47 (60) 93 07/19/17 20:21 98.0 78 20 107/57 (74) 98 07/19/17 15:28 97.4 78 20 103/56 (72) 99 07/19/17 14:15 74 I/O 07/19/17 07/19/17 07/19/17 07/20/17 07/20/17 07/20/17 07:00 15:00 23:00 07:00 15:00 23:00 Intake Total 60 ml 300 ml Output Total 100 ml 550 ml Balance -40 ml -250 ml Intake Oral 60 ml 300 ml Output Urine Total 100 ml 550 ml # Voids 3 # Bowel Movements 0 Result Diagram: 07/19/17 1422 07/19/17 1422 Objective Remarks GENERAL: NAD, A&Ox3 HEAD: Normocephalic. NECK: Supple, trachea midline. No lymphadenopathy. EYES: No scleral icterus. No injection or drainage. CARDIOVASCULAR: Regular rate and rhythm without murmurs, gallops, or rubs. RESPIRATORY: Breath sounds equal bilaterally. No accessory muscle use. Decreased breath sounds at base of lung on the patient's right side and pulmonary crackles at left base. GASTROINTESTINAL: Abdomen soft, non-tender, nondistended. MUSCULOSKELETAL: No cyanosis, or edema. SKIN: Warm and dry. NEURO: No focal neurological deficitis. A/P Problem List: (1) Acute exacerbation of congestive heart failure ICD Code: I50.9 - Heart failure, unspecified Status: Acute (2) Anemia ICD Code: D64.9 - Anemia, unspecified Status: Chronic (3) Chronic kidney disease (CKD) ICD Code: N18.9 - Chronic kidney disease, unspecified Status: Acute (4) DM (diabetes mellitus) ICD Code: E11.9 - Type 2 diabetes mellitus without complications Status: Acute Assessment and Plan Assessment and Plan 76-year-old male admitted secondary to CHF exacerbation with bilateral extremity edema and worsening dyspnea. Moderate pleural effusion on the left. Thoracentesis pending. CHF exacerbation Continue twice a day Lasix Continue fluid restriction Cardiology following Bilateral pleural effusions Left side greater than right Likely contributory to patient's shortness of breath Unlikely to improve rapidly with acute diuresis IR consult for thoracentesis of left side pleural effusion Acute on chronic kidney disease Nephrology following Continue to monitor renal function Anemia May be chronic Continue to follow CBC Transfuse if needed Diabetes mellitus type 2 Follow blood sugars Insulin sliding scale Diabetic diet Hypertension Continue home medications Clonidine when necessary COPD No exacerbation As needed duo nebs Continue Symbicort DVT prophylaxis Heparin Problem Qualifiers (1) Acute exacerbation of congestive heart failure: Qualified Codes: I50.9 - Heart failure, unspecified (2) Anemia: Qualified Codes: D64.9 - Anemia, unspecified Franky Culver MD Jul 20, 2017 13:43
[2017-07-20 13:49] LABS: PLEURAL FLUID LYMPHS 32 %
--- NOTE | 2017-07-20 14:27 | RADRPT ---
EXAM DATE/TIME: 07/20/2017 11:38 [facility] COMPARISON: CHEST EXPIRATION ONLY, July 20, 2017, 12:13. INDICATIONS : Left pleural effusion. MEDICAL HISTORY : Myocardial infarction. Chronic obstructive pulmonary disease. Hypertension. COPD. ESRD. Diabetes. Prostate cancer. SURGICAL HISTORY : Pacemaker. Dialysis. Cardiac stent. Cataract. ENCOUNTER: Subsequent ACUITY: 1 day PAIN SCORE: 3/10 LOCATION: Left chest FLUID: Total volume of 1200 cc of clear, red fluid was removed. Fluid was sent to lab for ordered studies. TECHNIQUE: 1. Ultrasound guidance for thoracentesis. 2. Thoracentesis. The risks, benefits, and alternatives to ultrasound guided thoracentesis were explained to the patien t in lay simple terms, including the risk of bleeding and infection. Written and verbal informed con sent was obtained. Appropriate area for thoracentesis was marked under ultrasound guidance with the patient in the uprig ht position. Overlying skin was prepped and draped in the usual sterile fashion and with local anest hetic, a dermatotomy was made with an 11 blade scalpel. A 6 Chinese thoracentesis catheter was placed in the pleural space and fluid was removed. Catheter was then removed and a sterile dressing applie d. There were no immediate complications. The patient tolerated the procedure well and the left the ultrasound suite in stable condition. Chest radiograph is to be obtained. CONCLUSION: Uncomplicated ultrasound guided left thoracentesis. Alexis Mcmahan Jr., MD on July 20, 2017 at 14:25 Board Certified Radiologist. This report was verified electronically.
[2017-07-20 17:02] LABS: BASOPHIL # 0.1 TH/MM3 (0-0.2); BASOPHIL % 1.1 % (0.0-2.0); EOSINOPHIL # 0.1 TH/MM3 (0-0.4); EOSINOPHIL % 1.8 % (0.0-4.0); HEMATOCRIT 25.5 % (39.0-51.0); LYMPH % 20.5 % (9.0-44.0); LYMPHOCYTE # 1.2 TH/MM3 (1.0-4.8); MEAN CELL VOLUME 100.3 FL (80.0-100.0); MEAN CORPUSCULAR HEMOGLOBIN 32.9 PG (27.0-34.0); MEAN CORPUSCULAR HGB CONC 32.8 % (32.0-36.0); MONO % 7.8 % (0.0-8.0); NEUT % 68.8 % (16.0-70.0); PLATELET COUNT 85 TH/MM3 (150-450); RED BLOOD COUNT 2.54 MIL/MM3 (4.50-5.90); RED CELL DISTRIBUTION WIDTH 15.9 % (11.6-17.2); WHITE BLOOD COUNT 5.8 TH/MM3 (4.0-11.0)
[2017-07-20 17:07] LABS: HEMO FLAGS AUTO DIFF
[2017-07-20 17:25] LABS: ANION GAP 11 MEQ/L (5-15); AST (GOT) 18 U/L (15-37); BICARBONATE 20.5 MEQ/L (21.0-32.0); BLOOD UREA NITROGEN 82 MG/DL (7-18); CHLORIDE 104 MEQ/L (98-107); GLOMERULAR FILTRATION RATE 24 ML/MIN (>89); POTASSIUM 4.6 MEQ/L (3.5-5.1); SODIUM (NA) 135 MEQ/L (136-145)
[2017-07-20 17:26] LABS: ALT (GPT) 33 U/L (12-78)
[2017-07-20 17:36] LABS: ALKALINE PHOSPHATASE 161 U/L (45-117); TOTAL BILIRUBIN ADULT 0.6 MG/DL (0.2-1.0)
--- NOTE | 2017-07-20 17:55 | PD.CARD.PN ---
Subjective Subjective Remarks Less dyspnea and edema, no CP, ambulating in his room Objective Medications Current Medications Medications (Trade) Dose Ordered Sig/Bita Route Start Time Stop Time Status Last Admin (Norvasc) 2.5 mg DAILY PO 07/18/17 09:00 07/20/17 10:21 (Symbicort 160-4.5 Inh) 1 puff Q12HR INH 07/18/17 09:00 07/20/17 10:21 (Coreg) 3.125 mg Q12HR PO 07/18/17 09:00 07/20/17 10:22 (Mag-Ox) 400 mg DAILY PO 07/18/17 09:00 07/20/17 10:22 (KCl) 10 meq DAILY PO 07/18/17 09:00 07/20/17 10:22 (Protonix) 40 mg DAILY PRN PO 07/18/17 09:00 (NS Flush) 2 ml UNSCH PRN IV FLUSH 07/18/17 02:00 (NS Flush) 2 ml BID IV FLUSH 07/18/17 09:00 07/20/17 10:21 (Heparin Inj) 5,000 units Q12H SQ 07/18/17 02:00 07/20/17 15:20 (Pill Splitter) 1 ea UNSCH PRN OTHER 07/18/17 02:15 (D50w (Vial) Inj) 50 ml UNSCH PRN IV PUSH 07/18/17 02:15 (Glucagon Inj) 1 mg UNSCH PRN OTHER 07/18/17 02:15 (NovoLOG SUPPLEMENTAL SCALE) 1 ACHS SLIDING SCALE SQ 07/18/17 08:00 07/20/17 17:26 (Catapres) 0.1 mg Q6H PRN PO 07/18/17 02:30 (Duoneb Neb) 1 ampule Q4HR NEB PRN NEB 07/18/17 02:30 (Ferrous Sulfate) 325 mg BID PO 07/19/17 21:00 07/20/17 10:21 (Lasix) 40 mg DAILY PO 07/20/17 09:00 07/20/17 10:22 Vital Signs / I&O Vital Signs Date Time Temp Pulse Resp B/P (MAP) Pulse Ox O2 Delivery O2 Flow Rate FiO2 07/20/17 17:38 71 07/20/17 16:04 97.4 72 21 100/57 (71) 99 07/20/17 14:23 77 07/20/17 12:30 65 20 90/47 (61) 95 07/20/17 12:15 97.5 63 20 94/54 (67) 96 07/20/17 11:47 98.0 72 20 88/56 (67) 97 07/20/17 08:04 97.4 76 18 105/58 (74) 97 07/20/17 06:35 Nasal Cannula 2.00 07/20/17 04:26 96.8 69 18 93/51 (65) 97 07/20/17 00:04 96.7 64 18 85/47 (60) 93 07/19/17 20:21 98.0 78 20 107/57 (74) 98 I/O 07/19/17 07/19/17 07/19/17 07/20/17 07/20/17 07/20/17 07:00 15:00 23:00 07:00 15:00 23:00 Intake Total 60 ml 300 ml 820 ml 240 ml Output Total 100 ml 550 ml Balance -40 ml -250 ml 820 ml 240 ml Intake Oral 60 ml 300 ml 820 ml 240 ml Output Urine Total 100 ml 550 ml # Voids 3 # Bowel Movements 0 Physical Exam GENERAL: In NAD. SKIN: Warm and dry. HEAD: Normocephalic. EYES: No scleral icterus. No injection or drainage. NECK: Supple, trachea midline. No JVD or lymphadenopathy. CARDIOVASCULAR: Regular rate and rhythm without murmurs, gallops, or rubs. RESPIRATORY: Breath sounds equal bilaterally. No accessory muscle use. Few bibas crackles. GASTROINTESTINAL: Abdomen soft, non-tender, nondistended. MUSCULOSKELETAL: No cyanosis, 1+ edema. Laboratory Laboratory Tests Test 07/20/17 02:15 07/20/17 12:04 07/20/17 16:45 Urine Color YELLOW Urine Turbidity HAZY Urine pH 5.0 Urine Specific [place] 1.010 Urine Protein TRACE mg/dL Urine Glucose (UA) NEG mg/dL Urine Ketones NEG mg/dL Urine Occult Blood NEG Urine Nitrite NEG Urine Bilirubin NEG Urine Urobilinogen LESS THAN 2.0 MG/DL Urine Leukocyte Esterase NEG Urine RBC LESS THAN 1 /hpf Urine WBC 1 /hpf Urine Hyaline Casts 9 /lpf Urine Mucus FEW /lpf Microscopic Urinalysis Comment CULT NOT INDICATED Pleural Fluid pH 8.5 Pleural Fluid WBC 277 /MM3 Pleural Fluid RBC 8892 /MM3 Pleural Fluid Neutrophils 63 % Pleural Fluid Lymphocytes 32 % Pleural Fluid Monocytes 1 % Pleural Fluid Eosinophils 3 % Pleural Fluid Histiocytes 1 % Pleural Fluid Total Protein 2.2 GM/DL Pleural Fluid LDH 73 U/L Pleural Fluid Glucose 171 MG/DL White Blood Count 5.8 TH/MM3 Red Blood Count 2.54 MIL/MM3 Hemoglobin 8.4 GM/DL Hematocrit 25.5 % Mean Corpuscular Volume 100.3 FL Mean Corpuscular Hemoglobin 32.9 PG Mean Corpuscular Hemoglobin Concent 32.8 % Red Cell Distribution Width 15.9 % Platelet Count 85 TH/MM3 Mean Platelet Volume 10.1 FL Neutrophils (%) (Auto) 68.8 % Lymphocytes (%) (Auto) 20.5 % Monocytes (%) (Auto) 7.8 % Eosinophils (%) (Auto) 1.8 % Basophils (%) (Auto) 1.1 % Neutrophils # (Auto) 4.0 TH/MM3 Lymphocytes # (Auto) 1.2 TH/MM3 Monocytes # (Auto) 0.5 TH/MM3 Eosinophils # (Auto) 0.1 TH/MM3 Basophils # (Auto) 0.1 TH/MM3 CBC Comment AUTO DIFF Blood Urea Nitrogen 82 MG/DL Creatinine 2.60 MG/DL Random Glucose 217 MG/DL Total Protein 6.9 GM/DL Albumin 3.8 GM/DL Calcium Level 8.4 MG/DL Alkaline Phosphatase 161 U/L Aspartate Amino Transf (AST/SGOT) 18 U/L Alanine Aminotransferase (ALT/SGPT) 33 U/L Total Bilirubin 0.6 MG/DL Sodium Level 135 MEQ/L Potassium Level 4.6 MEQ/L Chloride Level 104 MEQ/L Carbon Dioxide Level 20.5 MEQ/L Anion Gap 11 MEQ/L Estimat Glomerular Filtration Rate 24 ML/MIN Imaging Last 24 hours Impressions Thoracentesis Ultrasound 07/20/17 0000 Signed Impressions: Service Date/Time: Thursday, July 20, 2017 11:38 - CONCLUSION: Uncomplicated ultrasound guided left thoracentesis. Alexis Mcmahan Jr., MD Chest X-Ray 07/20/17 0000 Signed Impressions: Service Date/Time: Thursday, July 20, 2017 12:13 - CONCLUSION: No evidence of pneumothorax. Small effusions and infiltrates bilaterally. Lowell Bull MD Assessment and Plan Problem List: (1) Acute exacerbation of congestive heart failure ICD Codes: I50.9 - Heart failure, unspecified Status: Acute (2) Ischemic cardiomyopathy ICD Codes: I25.5 - Ischemic cardiomyopathy (3) CAD (coronary artery disease) ICD Codes: I25.10 - Atherosclerotic heart disease of [place] coronary artery without angina pectoris (4) ARF (acute renal failure) ICD Codes: N17.9 - Acute kidney failure, unspecified Status: Acute (5) ICD (implantable cardioverter-defibrillator) in place ICD Codes: Z95.810 - Presence of automatic (implantable) cardiac defibrillator (6) Chronic kidney disease (CKD) ICD Codes: N18.9 - Chronic kidney disease, unspecified Status: Acute (7) DM (diabetes mellitus) ICD Codes: E11.9 - Type 2 diabetes mellitus without complications Status: Acute (8) Anemia ICD Codes: D64.9 - Anemia, unspecified Status: Chronic (9) HTN (hypertension) ICD Codes: I10 - Essential (primary) hypertension Status: Chronic Assessment and Plan Some improvement. Thoracentesis today. Continue therapy for CHF. Continue diuresis, closely monitor renal fx (creat 2.6). Nephrology evaluation in progress. No evidence of ACS. Increase activity. Problem Qualifiers (1) Acute exacerbation of congestive heart failure: Qualified Codes: I50.9 - Heart failure, unspecified (2) Anemia: Qualified Codes: D64.9 - Anemia, unspecified Bg Sommer MD Jul 20, 2017 17:55
[2017-07-20 18:04] LABS: PLATELET ESTIMATE SMEAR NORMAL (NORMAL); PLATELET MORPHOLOGY NORMAL (NORMAL); SCAN/DIFF AUTO DIFF CONFIRMED
--- NOTE | 2017-07-20 18:29 | HHI.NPPN ---
Subjective History of Present Illness 76-year-old male with a past medical history of hypertension, ischemic heart disease, congestive heart failure, hyperlipidemia, chronic kidney disease, history of prostate cancer. He came to the hospital with the complaint of worsening shortness of breath and increased swelling of the legs. I was called to see the patient because of elevated BUN and creatinine. The patient has a known history of chronic kidney disease and his creatinine in August of last year was 1.4-1.5. The patient has been following at the [facility]. Additional Remarks Patient is sitting on chair, with nasal cannula, breathing is better after Thoracentesis. Objective Data Data 07/20/17 07/21/17 19:00 07:00 Intake Total 1060 ml Balance 1060 ml Intake Oral 1060 ml Vital Signs Date Time Temp Pulse Resp B/P (MAP) Pulse Ox O2 Delivery O2 Flow Rate FiO2 07/20/17 17:38 71 07/20/17 16:04 97.4 72 21 100/57 (71) 99 07/20/17 14:23 77 07/20/17 12:30 65 20 90/47 (61) 95 07/20/17 12:15 97.5 63 20 94/54 (67) 96 07/20/17 11:47 98.0 72 20 88/56 (67) 97 07/20/17 08:04 97.4 76 18 105/58 (74) 97 07/20/17 06:35 Nasal Cannula 2.00 07/20/17 04:26 96.8 69 18 93/51 (65) 97 07/20/17 00:04 96.7 64 18 85/47 (60) 93 07/19/17 20:21 98.0 78 20 107/57 (74) 98 -: 07/20/17 1645 07/20/17 1645 Microbiology 07/20/17 Fungal Smear, Received Pending 07/20/17 Fungal Culture, Received Pending 07/20/17 Gram Stain - Final, Resulted 07/20/17 Body Fluid Culture, Resulted Pending Physical Exam General Appearance: No Acute Distress, Comfortable Throat Throat Exam: Oral Mucosa [place] & Moist Pulmonary Resp Exam: Breath Sounds Equal, No Distress, Crackles, Decreased Bases, Diminished Breath Sounds Gastrointestinal/Abdomen GI Exam: Soft, Non-Tender, Bowel Sounds Present Extremeties Extremities Exam: Moderate Edema, Pitting Edema, Dependent Edema Neurologic Neuro Exam: Alert, Awake, Oriented Psychiatric Psych Exam: Appropriate Responses Assessment/Plan Assessment Summary: Anemia of CKD, Fluid/Volume Overload, CHF, CKD Stage IV Problem List: (1) Diabetes mellitus, insulin dependent (IDDM), uncontrolled ICD Codes: E10.65 - Type 1 diabetes mellitus with hyperglycemia Status: Chronic (2) Hyperlipidemia ICD Codes: E78.5 - Hyperlipidemia, unspecified Status: Chronic (3) Hypoxemia ICD Codes: R09.02 - Hypoxemia Status: Acute (4) SOB (shortness of breath) ICD Codes: R06.02 - Shortness of breath Status: Acute (5) HTN (hypertension) ICD Codes: I10 - Essential (primary) hypertension Status: Chronic (6) CHF (congestive heart failure) ICD Codes: I50.9 - Heart failure, unspecified Status: Chronic (7) Chronic kidney disease (CKD) ICD Codes: N18.9 - Chronic kidney disease, unspecified Status: Acute Plan Patient has chronic kidney disease, possibly stage 4. Has trace proteinuria. Continue Lasix and Kcl. Creatinine is almost same. Hgb. is low, iron sat. is low. On iron and give one dose of Epogen. Post Thoracentesis and 1.2 liters removed. BP is stable. Continue Lasix. Radha Stanley MD Jul 20, 2017 18:29
[2017-07-21] VITALS: PULSE 65
[2017-07-21 00:26] VITALS: BP 99/55; PULSE 60; RESP 17; TEMP 95.5; O2SAT 100
[2017-07-21 03:00] VITALS: PULSE 84
[2017-07-21] MEDS: HEPARIN SODIUM - SQ 10,000 UNITS/ML VIAL SQ SCH ×2 (03:08→13:56)
[2017-07-21 03:44] VITALS: BP 103/55; PULSE 67; RESP 14; TEMP 96; O2SAT 90
[2017-07-21 06:57] LABS: BASOPHIL % 0.8 % (0.0-2.0); EOSINOPHIL # 0.1 TH/MM3 (0-0.4); EOSINOPHIL % 1.8 % (0.0-4.0); HEMATOCRIT 24.2 % (39.0-51.0); LYMPH % 27.2 % (9.0-44.0); LYMPHOCYTE # 1.3 TH/MM3 (1.0-4.8); MEAN CELL VOLUME 99.9 FL (80.0-100.0); MEAN CORPUSCULAR HEMOGLOBIN 33.1 PG (27.0-34.0); MEAN CORPUSCULAR HGB CONC 33.2 % (32.0-36.0); MONO % 8.9 % (0.0-8.0); NEUT % 61.3 % (16.0-70.0); PLATELET COUNT 70 TH/MM3 (150-450); RED BLOOD COUNT 2.42 MIL/MM3 (4.50-5.90); RED CELL DISTRIBUTION WIDTH 15.6 % (11.6-17.2); WHITE BLOOD COUNT 4.8 TH/MM3 (4.0-11.0)
[2017-07-21 07:04] LABS: HEMO FLAGS AUTO DIFF
[2017-07-21 07:32] LABS: ALT (GPT) 38 U/L (12-78); ANION GAP 11 MEQ/L (5-15); AST (GOT) 29 U/L (15-37); BICARBONATE 20.8 MEQ/L (21.0-32.0); BLOOD UREA NITROGEN 85 MG/DL (7-18); CHLORIDE 104 MEQ/L (98-107); GLOMERULAR FILTRATION RATE 24 ML/MIN (>89); POTASSIUM 4.7 MEQ/L (3.5-5.1); SODIUM (NA) 136 MEQ/L (136-145)
[2017-07-21 07:34] LABS: ALKALINE PHOSPHATASE 143 U/L (45-117); TOTAL BILIRUBIN ADULT 0.6 MG/DL (0.2-1.0)
[2017-07-21 07:37] VITALS: BP 108/48; PULSE 68; PULSE 70; RESP 21; TEMP 98; O2SAT 90
[2017-07-21] MEDS: INSULIN ASPART SUPPLEMENTAL SCALE SQ SCH ×2 (08:00→12:00)
[2017-07-21 08:35] LABS: PLATELET ESTIMATE SMEAR LOW (NORMAL); PLATELET MORPHOLOGY NORMAL (NORMAL); SCAN/DIFF AUTO DIFF CONFIRMED
[2017-07-21] MEDS: BUDESONIDE-FORMOTEROL 160/4.5 MCG INHALER INH SCH (08:37)
[2017-07-21] MEDS: FERROUS SULFATE 325 MG (65 MG ELEMENTAL IRON) TAB PO SCH (08:38)
[2017-07-21] MEDS: SODIUM CHLORIDE 0.9% FLUSH 10 ML FLUSH IV FLUSH SCH (08:38)
[2017-07-21] MEDS: amLODIPine BESYLATE 5 MG TAB PO SCH (08:38)
[2017-07-21] MEDS: CARVEDILOL 3.125 MG TAB PO SCH (08:38)
[2017-07-21] MEDS: FUROSEMIDE 40 MG TAB PO SCH (08:38)
[2017-07-21] MEDS: POTASSIUM CHLORIDE 10 MEQ CONTROLLED RELEASE TAB PO SCH (08:38)
[2017-07-21] MEDS: MAGNESIUM OXIDE 400 MG TAB PO SCH (08:38)
[2017-07-21 11:32] VITALS: BP 115/55; PULSE 63; RESP 18; TEMP 97.6; O2SAT 96
--- NOTE | 2017-07-21 12:48 | PD.CARD.PN ---
Subjective Subjective Remarks Feels better, has less dyspnea and edema, no CP, ambulating in his room Objective Medications Current Medications Medications (Trade) Dose Ordered Sig/Bita Route Start Time Stop Time Status Last Admin (Norvasc) 2.5 mg DAILY PO 07/18/17 09:00 07/21/17 08:38 (Symbicort 160-4.5 Inh) 1 puff Q12HR INH 07/18/17 09:00 07/21/17 08:37 (Coreg) 3.125 mg Q12HR PO 07/18/17 09:00 07/21/17 08:38 (Mag-Ox) 400 mg DAILY PO 07/18/17 09:00 07/21/17 08:38 (KCl) 10 meq DAILY PO 07/18/17 09:00 07/21/17 08:38 (Protonix) 40 mg DAILY PRN PO 07/18/17 09:00 (NS Flush) 2 ml UNSCH PRN IV FLUSH 07/18/17 02:00 (NS Flush) 2 ml BID IV FLUSH 07/18/17 09:00 07/21/17 08:38 (Heparin Inj) 5,000 units Q12H SQ 07/18/17 02:00 07/21/17 03:08 (Pill Splitter) 1 ea UNSCH PRN OTHER 07/18/17 02:15 (D50w (Vial) Inj) 50 ml UNSCH PRN IV PUSH 07/18/17 02:15 (Glucagon Inj) 1 mg UNSCH PRN OTHER 07/18/17 02:15 (NovoLOG SUPPLEMENTAL SCALE) 1 ACHS SLIDING SCALE SQ 07/18/17 08:00 07/20/17 21:12 (Catapres) 0.1 mg Q6H PRN PO 07/18/17 02:30 (Duoneb Neb) 1 ampule Q4HR NEB PRN NEB 07/18/17 02:30 (Ferrous Sulfate) 325 mg BID PO 07/19/17 21:00 07/21/17 08:38 (Lasix) 40 mg DAILY PO 07/20/17 09:00 07/21/17 08:38 Vital Signs / I&O Vital Signs Date Time Temp Pulse Resp B/P (MAP) Pulse Ox O2 Delivery O2 Flow Rate FiO2 07/21/17 11:32 97.6 63 18 115/55 (75) 96 11/16/17 07:37 98.0 70 21 108/48 (68) 90 07/21/17 07:37 68 07/21/17 03:44 96.0 67 14 103/55 (71) 90 07/21/17 03:00 84 07/21/17 00:26 95.5 60 17 99/55 (70) 100 07/21/17 00:00 65 07/20/17 20:00 61 07/20/17 19:35 97.1 87 19 105/57 (73) 97 07/20/17 17:38 71 07/20/17 16:04 97.4 72 21 100/57 (71) 99 07/20/17 14:23 77 I/O 07/20/17 07/20/17 07/20/17 07/21/17 07/21/17 07/21/17 07:00 15:00 23:00 07:00 15:00 23:00 Intake Total 300 ml 820 ml 240 ml 480 ml 0 ml Output Total 550 ml Balance -250 ml 820 ml 240 ml 480 ml 0 ml Intake Oral 300 ml 820 ml 240 ml 480 ml IV Total 0 ml Output Urine Total 550 ml # Bowel Movements 0 Physical Exam GENERAL: In NAD. SKIN: Warm and dry. HEAD: Normocephalic. EYES: No scleral icterus. No injection or drainage. NECK: Supple, trachea midline. No JVD or lymphadenopathy. CARDIOVASCULAR: Regular rate and rhythm without murmurs, gallops, or rubs. RESPIRATORY: Breath sounds equal bilaterally. No accessory muscle use. Few bibas crackles. GASTROINTESTINAL: Abdomen soft, non-tender, nondistended. MUSCULOSKELETAL: No cyanosis, mild edema. Laboratory Laboratory Tests Test 07/20/17 16:45 07/21/17 06:10 White Blood Count 5.8 TH/MM3 4.8 TH/MM3 Red Blood Count 2.54 MIL/MM3 2.42 MIL/MM3 Hemoglobin 8.4 GM/DL 8.0 GM/DL Hematocrit 25.5 % 24.2 % Mean Corpuscular Volume 100.3 FL 99.9 FL Mean Corpuscular Hemoglobin 32.9 PG 33.1 PG Mean Corpuscular Hemoglobin Concent 32.8 % 33.2 % Red Cell Distribution Width 15.9 % 15.6 % Platelet Count 85 TH/MM3 70 TH/MM3 Mean Platelet Volume 10.1 FL 9.8 FL Neutrophils (%) (Auto) 68.8 % 61.3 % Lymphocytes (%) (Auto) 20.5 % 27.2 % Monocytes (%) (Auto) 7.8 % 8.9 % Eosinophils (%) (Auto) 1.8 % 1.8 % Basophils (%) (Auto) 1.1 % 0.8 % Neutrophils # (Auto) 4.0 TH/MM3 3.0 TH/MM3 Lymphocytes # (Auto) 1.2 TH/MM3 1.3 TH/MM3 Monocytes # (Auto) 0.5 TH/MM3 0.4 TH/MM3 Eosinophils # (Auto) 0.1 TH/MM3 0.1 TH/MM3 Basophils # (Auto) 0.1 TH/MM3 0.0 TH/MM3 CBC Comment AUTO DIFF AUTO DIFF Differential Comment AUTO DIFF CONFIRMED AUTO DIFF CONFIRMED Platelet Estimate NORMAL LOW Platelet Morphology Comment NORMAL NORMAL Blood Urea Nitrogen 82 MG/DL 85 MG/DL Creatinine 2.60 MG/DL 2.65 MG/DL Random Glucose 217 MG/DL 126 MG/DL Total Protein 6.9 GM/DL 6.1 GM/DL Albumin 3.8 GM/DL 3.4 GM/DL Calcium Level 8.4 MG/DL 8.1 MG/DL Alkaline Phosphatase 161 U/L 143 U/L Aspartate Amino Transf (AST/SGOT) 18 U/L 29 U/L Alanine Aminotransferase (ALT/SGPT) 33 U/L 38 U/L Total Bilirubin 0.6 MG/DL 0.6 MG/DL Sodium Level 135 MEQ/L 136 MEQ/L Potassium Level 4.6 MEQ/L 4.7 MEQ/L Chloride Level 104 MEQ/L 104 MEQ/L Carbon Dioxide Level 20.5 MEQ/L 20.8 MEQ/L Anion Gap 11 MEQ/L 11 MEQ/L Estimat Glomerular Filtration Rate 24 ML/MIN 24 ML/MIN Assessment and Plan Problem List: (1) Acute exacerbation of congestive heart failure ICD Codes: I50.9 - Heart failure, unspecified Status: Acute (2) Ischemic cardiomyopathy ICD Codes: I25.5 - Ischemic cardiomyopathy (3) CAD (coronary artery disease) ICD Codes: I25.10 - Atherosclerotic heart disease of [place] coronary artery without angina pectoris (4) ARF (acute renal failure) ICD Codes: N17.9 - Acute kidney failure, unspecified Status: Acute (5) ICD (implantable cardioverter-defibrillator) in place ICD Codes: Z95.810 - Presence of automatic (implantable) cardiac defibrillator (6) Chronic kidney disease (CKD) ICD Codes: N18.9 - Chronic kidney disease, unspecified Status: Acute (7) DM (diabetes mellitus) ICD Codes: E11.9 - Type 2 diabetes mellitus without complications Status: Acute (8) Anemia ICD Codes: D64.9 - Anemia, unspecified Status: Chronic (9) HTN (hypertension) ICD Codes: I10 - Essential (primary) hypertension Status: Chronic Assessment and Plan Slowly improving. Thoracentesis yest, feels better. Continue therapy for CHF. Continue diuresis, closely monitor renal fx (creat 2.6, increased, but stable). Nephrology evaluation in progress. No evidence of ACS. Increase activity. Problem Qualifiers (1) Acute exacerbation of congestive heart failure: Qualified Codes: I50.9 - Heart failure, unspecified (2) Anemia: Qualified Codes: D64.9 - Anemia, unspecified Bg Sommre MD Jul 21, 2017 12:48
--- NOTE | 2017-07-21 13:46 | HHI.NPPN ---
Subjective History of Present Illness 76-year-old male with a past medical history of hypertension, ischemic heart disease, congestive heart failure, hyperlipidemia, chronic kidney disease, history of prostate cancer. He came to the hospital with the complaint of worsening shortness of breath and increased swelling of the legs. I was called to see the patient because of elevated BUN and creatinine. The patient has a known history of chronic kidney disease and his creatinine in August of last year was 1.4-1.5. The patient has been following at the [facility]. Additional Remarks Patient is alert, now walking with Neil, off O2, feeling better. Objective Data Data 07/21/17 07/22/17 19:00 07:00 Intake Total 0 ml Balance 0 ml IV Total 0 ml Vital Signs Date Time Temp Pulse Resp B/P (MAP) Pulse Ox O2 Delivery O2 Flow Rate FiO2 07/21/17 11:32 97.6 63 18 115/55 (75) 96 07/21/17 07:37 98.0 70 21 108/48 (68) 90 07/21/17 07:37 68 07/21/17 03:44 96.0 67 14 103/55 (71) 90 07/21/17 03:00 84 07/21/17 00:26 95.5 60 17 99/55 (70) 100 07/21/17 00:00 65 07/20/17 20:00 61 07/20/17 19:35 97.1 87 19 105/57 (73) 97 07/20/17 17:38 71 07/20/17 16:04 97.4 72 21 100/57 (71) 99 07/20/17 14:23 77 -: 07/21/17 0610 07/21/17 0610 Physical Exam General Appearance: No Acute Distress, Comfortable Throat Throat Exam: Oral Mucosa [place] & Moist Pulmonary Resp Exam: Breath Sounds Equal, No Distress, Crackles, Decreased Bases, Diminished Breath Sounds Gastrointestinal/Abdomen GI Exam: Soft, Non-Tender, Bowel Sounds Present Extremeties Extremities Exam: Moderate Edema, Pitting Edema, Dependent Edema Neurologic Neuro Exam: Alert, Awake, Oriented Psychiatric Psych Exam: Appropriate Responses Assessment/Plan Assessment Summary: Anemia of CKD, Fluid/Volume Overload, CHF, CKD Stage IV Problem List: (1) Diabetes mellitus, insulin dependent (IDDM), uncontrolled ICD Codes: E10.65 - Type 1 diabetes mellitus with hyperglycemia Status: Chronic (2) Hyperlipidemia ICD Codes: E78.5 - Hyperlipidemia, unspecified Status: Chronic (3) Hypoxemia ICD Codes: R09.02 - Hypoxemia Status: Acute (4) SOB (shortness of breath) ICD Codes: R06.02 - Shortness of breath Status: Acute (5) HTN (hypertension) ICD Codes: I10 - Essential (primary) hypertension Status: Chronic (6) CHF (congestive heart failure) ICD Codes: I50.9 - Heart failure, unspecified Status: Chronic (7) Chronic kidney disease (CKD) ICD Codes: N18.9 - Chronic kidney disease, unspecified Status: Acute Plan Patient has chronic kidney disease, possibly stage 4. Has trace proteinuria. Continue Lasix and Kcl. Creatinine is now 2.6, with GFR of 24 ml/min. Hgb. is low, iron sat. is low. On iron and give one dose of Epogen. Post Thoracentesis and 1.2 liters removed. BP is stable. Continue Lasix. Decrease salt and fluid intake. Radha Stanley MD Jul 21, 2017 13:46
[2017-07-21] MEDS ORDERED: FERR325T20 PO (14:13)
--- NOTE | 2017-07-21 14:50 | HHI.DS ---
Discharge Summary Admission Date Jul 19, 2017 at 16:12 Discharge Date: Jul 21, 2017 Admitting Diagnosis CHF exacerbation, chronic anemia, renal insufficiency (1) CHF exacerbation ICD Code: I50.9 - Heart failure, unspecified Diagnosis: Principal (2) Pleural effusion, left ICD Code: J90 - Pleural effusion, not elsewhere classified Diagnosis: Principal (3) CAD (coronary artery disease) ICD Code: I25.10 - Atherosclerotic heart disease of [place] coronary artery without angina pectoris Diagnosis: Secondary (4) CHF (congestive heart failure) ICD Code: I50.9 - Heart failure, unspecified Diagnosis: Secondary Status: Chronic Procedures Left-sided thoracentesis Brief History - From Admission 76-year-old male with a past medical history significant for CHF, CKD, CAD, hypertension, hyperlipidemia and current prostate cancer undergoing treatment presents to the emergency department with a 3 week history of increasing dyspnea. Patient reports that over the past 3 weeks he has been short of breath , worse with exertion. He was seen in the emergency department in [place] 1 week ago where he was told that he had a spot on his lung that needed to be followed up and he was released to home. The patient's shortness of breath continued to worsen and he now has a 5 day history of bilateral lower extremity edema. Patient's lab values significant for a BNP of 1045, creatinine of 2.59 with a baseline of approximately 1.5, and an H&H of 7.6/23.5. Hemoglobin on 07/14/17 was 7.9. CBC/BMP: 07/21/17 0610 07/21/17 0610 Significant Findings Laboratory Tests Test 07/19/17 14:22 07/20/17 02:15 07/20/17 12:04 07/20/17 16:45 Red Blood Count 2.41 MIL/MM3 (4.50-5.90) 2.54 MIL/MM3 (4.50-5.90) Hemoglobin 7.6 GM/DL (13.0-17.0) 8.4 GM/DL (13.0-17.0) Hematocrit 24.1 % (39.0-51.0) 25.5 % (39.0-51.0) Mean Corpuscular Hemoglobin Concent 31.6 % (32.0-36.0) Platelet Count 74 TH/MM3 (150-450) 85 TH/MM3 (150-450) Neutrophils (%) (Auto) 71.2 % (16.0-70.0) Lymphocytes # (Auto) 0.9 TH/MM3 (1.0-4.8) Platelet Estimate LOW (NORMAL) Blood Urea Nitrogen 78 MG/DL (7-18) 82 MG/DL (7-18) Creatinine 2.56 MG/DL (0.60-1.30) 2.60 MG/DL (0.60-1.30) Random Glucose 289 MG/DL (74-106) 217 MG/DL (74-106) Calcium Level 8.1 MG/DL (8.5-10.1) 8.4 MG/DL (8.5-10.1) Alkaline Phosphatase 149 U/L (45-117) 161 U/L (45-117) Chloride Level 108 MEQ/L (98-107) Estimat Glomerular Filtration Rate 25 ML/MIN (>89) 24 ML/MIN (>89) Iron Level 58 MCG/DL (65-175) Percent Iron Saturation 16.2 % (20-50) B-Type Natriuretic Peptide 1420 PG/ML (0-100) Urine Turbidity HAZY (CLEAR) Urine Mucus FEW /lpf (OCC) Pleural Fluid WBC 277 /MM3 (0-10) Pleural Fluid RBC 8892 /MM3 (0-0) Mean Corpuscular Volume 100.3 FL (80.0-100.0) Sodium Level 135 MEQ/L (136-145) Carbon Dioxide Level 20.5 MEQ/L (21.0-32.0) Test 07/21/17 06:10 Red Blood Count 2.42 MIL/MM3 (4.50-5.90) Hemoglobin 8.0 GM/DL (13.0-17.0) Hematocrit 24.2 % (39.0-51.0) Platelet Count 70 TH/MM3 (150-450) Monocytes (%) (Auto) 8.9 % (0.0-8.0) Platelet Estimate LOW (NORMAL) Blood Urea Nitrogen 85 MG/DL (7-18) Creatinine 2.65 MG/DL (0.60-1.30) Random Glucose 126 MG/DL (74-106) Total Protein 6.1 GM/DL (6.4-8.2) Calcium Level 8.1 MG/DL (8.5-10.1) Alkaline Phosphatase 143 U/L (45-117) Carbon Dioxide Level 20.8 MEQ/L (21.0-32.0) Estimat Glomerular Filtration Rate 24 ML/MIN (>89) Hospital Course Mr. Douglass is a 76-year-old male. He was admitted secondary to CHF exacerbation. Hypoxia was also present. Diuresis was performed and help somewhat allowing him to wean down to 2 L. He reached maximum diuretic benefit and still is requiring 2 L of oxygen. More extensive imaging was obtained of the chest showed left-sided pleural effusion. He had thoracentesis performed of the left side and since then he's been off oxygen and feeling at baseline. He is ambulatory and stable for discharge to home today. Pt Condition on Discharge: Stable Discharge Disposition: Discharge Home Discharge Time: <= 30 minutes Discharge Instructions DIET: Follow Instructions for: Diabetic Diet Activities you can perform: Regular-No Restrictions Follow up Referrals: PCP Follow-up - 2 Weeks New Medications: Ferrous Sulfate (Ferosul) 325 Mg (65 Mg Iron) Tablet 325 MG PO BID for Anemia, #30 TAB Continued Medications: Acetaminophen (Mapap) 500 Mg Tab 500 MG PO Q6HR PRN for PAIN, TAB 0 Refills Amlodipine (Amlodipine) 2.5 Mg Tab 2.5 MG PO DAILY for Blood Pressure Management, #30 TAB 0 Refills Budesonide-Formoterol Inh (Symbicort Inh) 160-4.5 Mcg/Act Aero 1 PUFF INH Q12HR for COPD, #1 INHALER 0 Refills Carvedilol (Coreg) 3.125 Mg Tab 3.125 MG PO Q12HR for HTN, #60 TAB 0 Refills Folic Acid (Folate) 1 Mg Tab 1 MG PO DAILY for Nutritional Supplement, TAB 0 Refills Furosemide (Lasix) 40 Mg Tab 40 MG PO DAILY IN THE MORNING, #30 TAB 0 Refills Insulin Human Isophane-Regular 70-30 Inj (Novolin 70-30 Inj) 1,000 Unit/10 Ml Vial 3 UNITS SQ BID for Blood Sugar Management for 30 Days, ML 0 Refills Magnesium Oxide (Magnesium Oxide) 400 Mg Tab 400 MG PO DAILY Multiple Vitamins W/ Minerals (Preservision Areds 2) 1 Cap 1 CAP PO DAILY for Nutritional Supplement, CAP 0 Refills Omeprazole (Omeprazole) 40 Mg Cap 40 MG PO DAILY PRN for REFLUX, #30 CAP 0 Refills Potassium Chloride ER (K-Tab) 10 Meq Tab 10 MEQ PO DAILY for Electrolyte Replacement, #30 TAB 0 Refills Discontinued Medications: Levofloxacin (Levaquin) 750 Mg Tab 750 MG PO Q48H for Infection for 6 Days, TAB Franky Culver MD Jul 21, 2017 14:50
== END 2017-07-21 16:33 | disposition home or self-care (01) | DRG 292 ==
LOC: NEPE 23:08 → NEDA 07-18 01:45 → UNDOADMIN 07-18 01:45 → NEDA 07-18 02:01 → INTOOBSV 07-18 02:01 → NEPHCDU 07-18 03:32 → NEDA 07-18 03:32 → OBSVTOIN 07-19 16:12
PROVIDERS: ADMIT Hospitalist; ATTEND Hospitalist
PROC: 0W9B3ZX Drainage of Left Pleural Cavity, Percutaneous Approach, Diagnostic (ICD-10-PCS; principal; 2017-07-20)
DX: I50.23 Acute on chronic systolic (congestive) heart failure (principal); J90 Pleural effusion, not elsewhere classified; E10.22 Type 1 diabetes mellitus with diabetic chronic kidney disease; N18.4 Chronic kidney disease, stage 4 (severe); N17.9 Acute kidney failure, unspecified; J44.9 Chronic obstructive pulmonary disease, unspecified; D63.1 Anemia in chronic kidney disease; C61 Malignant neoplasm of prostate; I13.0 Hypertensive heart and chronic kidney disease with heart failure and stage 1 through stage 4 chronic kidney disease, or unspecified chronic kidney disease; E78.5 Hyperlipidemia, unspecified; I25.10 Atherosclerotic heart disease of native coronary artery without angina pectoris; K21.9 Gastro-esophageal reflux disease without esophagitis; M10.9 Gout, unspecified; I25.5 Ischemic cardiomyopathy; R09.02 Hypoxemia; I25.2 Old myocardial infarction; Z79.4 Long term (current) use of insulin; Z79.82 Long term (current) use of aspirin; Z87.891 Personal history of nicotine dependence; Z95.5 Presence of coronary angioplasty implant and graft; Z99.81 Dependence on supplemental oxygen; Z95.810 Presence of automatic (implantable) cardiac defibrillator
CPT/HCPCS: 32555; 71010; 76775; 80053; 81001; 82150; 82550; 82728; 82945; 82948; 83540; 83550; 83615; 83735; 83880; 83986; 84100; 84157; 84484; 85025; 85379; 85610; 85730; 86850; 86900; 86901; 87070; 87102; 87205; 87206; 89051; 93005; 96361; 96372; 96374; 96376; C1729; G0378; J1644; J1815; J1940; J7050; Q4081